=== PATIENT | female | born 1980 | race Caucasian/White ===

== ENCOUNTER 2017-11-16 13:10 | Emergency (ER) | payer OTHER ==
[2017-11-16 13:30] VITALS: BP 157/76; PULSE 128; TEMP 99.2; BMI 23.3
--- NOTE | 2017-11-16 14:09 | PDOC ---
History of Present Illness - General Chief Complaint: Substance Abuse Stated Complaint: Substance Abuse History Source: Patient Exam Limitations: No Limitations - History of Present Illness Initial Comments: 11/16/17 14:05 37 yo F with h/o polysubstance abuse, here acutely after taking cocain, and heroin. was brought by ambulanc after seen walking in and out of a store. pt states she is schduled to go to rehab tomorrow. would like to go home. denies si / hi. states she has a home, lives with someone feels safe at home. denies other ingestions. offered [facility], declines at this time. Past History - Past Medical History Allergies/Adverse Reactions: Allergies Allergy/AdvReac Type Severity Reaction Status Date / Time honey [Honey] Allergy Severe Swelling Verified 11/16/17 13:26 vancomycin HCl Allergy Intermediate Itching Verified 11/16/17 13:26 [From Vancocin] shellfish derived Allergy Difficulty Verified 11/16/17 13:26 Breathing Home Medications: Ambulatory Orders Quetiapine Fumarate [Seroquel] 400 mg PO HS 01/26/16 Methadone HCl 100 mg PO DAILY 02/16/16 Polyethylene Glycol 3350 [Miralax (For Bowel Prep) -] 17 gm PO DAILY #1 bottle 06/15/17 Albuterol Sulfate Inhaler - [Ventolin Hfa Inhaler -] 1 - 2 inh PO QID PRN Anemia: Yes (NO MEDICATIONS, h/o menorrhagia) Asthma: Yes (Pt is on Albuterol IH - ) Cancer: No Cardiac Disorders: No CVA: No COPD: No CHF: No Dementia: No Diabetes: No GI Disorders: No Disorders: No HTN: No Hypercholesterolemia: No Kidney Stones: No Liver Disease: No Psychiatric Problems: Yes (anxiety, drug abuse) Seizures: No Thyroid Disease: No - Surgical History Abdominal Surgery: No Appendectomy: No Cardiac Surgery: No Cholecystectomy: No Lung Surgery: No Neurologic Surgery: No Orthopedic Surgery: No - Family Disease History Family Disease History: Diabetes: Grandparents, Heart Disease: Grandparents - Reproductive History PID: No - Immunization History Immunization Up to Date: (negative ppd; neg hiv 11/2014) - Suicide/Smoking/Psychosocial Hx Smoking Status: Yes Smoking History: Current every day smoker Have you smoked in the past 12 months: Yes Number of Cigarettes Smoked Daily: 20 Information on smoking cessation initiated: No 'Breaking Loose' booklet given: 09/10/17 Hx Alcohol Use: No Drug/Substance Use Hx: Yes Substance Use Type: Cocaine, Heroin, Opiates Hx Substance Use Treatment: Yes (Detox, MMTP) Review of Systems - Review of Systems Constitutional: No: Chills, Diaphoresis, Weight Stable HEENTM: No: Blurred Vision Respiratory: No: Orthopnea, Shortness of Breath Cardiac (ROS): No: Edema Musculoskeletal: No: See HPI, Back Pain Integumentary: No: See HPI, Bruising All Other Systems: Reviewed and Negative *Physical Exam - Vital Signs Last Vital Signs Temp Pulse Resp BP Pulse Ox 99.2 F 128 H 18 157/76 96 11/16/17 13:26 11/16/17 13:26 11/16/17 13:26 11/16/17 13:26 11/16/17 13:26 - Physical Exam General Appearance: Yes: Nourished HEENT: positive: Normal ENT Inspection, Other (conj injection) Neck: positive: Trachea midline Respiratory/Chest: positive: Lungs Clear, Normal Breath Sounds Cardiovascular: positive: Regular Rhythm, S1, S2, Other (regular tachycardia) Gastrointestinal/Abdominal: positive: Normal Bowel Sounds, Flat, Soft. negative : Tender Musculoskeletal: positive: Normal Inspection Extremity: positive: Normal Capillary Refill, Normal Inspection Integumentary: positive: Normal Color, Dry, Warm Neurologic: positive: Fully Oriented, Alert, Normal Mood/Affect, Motor Strength 5/5 Medical Decision Making - Medical Decision Making 11/16/17 14:0 37 yo F with h/o poly substance abuse s/p heroin and cocain, denies si or hi. would like to go home. is alert oriented x 3. ambulating with out difficulty. dc home. *DC/Admit/Observation/Transfer Diagnosis at time of Disposition: Cocaine abuse, Heroin abuse - Discharge Dispostion Disposition: HOME Condition at time of disposition: Good - Referrals - Patient Instructions Printed Discharge Instructions: Cocaine Use Disorder Additional Instructions: you should abstain from drug use. you can follow up with park care, go to [facility] for intake if you wish. return for any problems or concerns. - Post Discharge Activity
--- NOTE | 2017-11-18 22:01 | EKG ---
Test Reason : Blood Pressure : / mmHG Vent. Rate : 113 BPM Atrial Rate : 113 BPM P-R Int : 130 ms QRS Dur : 088 ms QT Int : 344 ms P-R-T Axes : 071 057 025 degrees QTc Int : 471 ms SINUS TACHYCARDIA POSSIBLE LEFT ATRIAL ENLARGEMENT BORDERLINE ECG WHEN COMPARED WITH ECG OF 10-SEP-2017 19:16, T WAVE AMPLITUDE HAS DECREASED IN ANTERIOR LEADS Confirmed by MARII BUSH MD ([id number]) on 11/18/2017 10:01:19 PM Referred By: Confirmed By:MARII BUSH MD
== END 2017-11-16 14:29 | disposition home or self-care (01) ==
LOC: JER 13:10
DX: F14.10 Cocaine abuse, uncomplicated (principal); F11.10 Opioid abuse, uncomplicated; F17.210 Nicotine dependence, cigarettes, uncomplicated; F41.8 Other specified anxiety disorders
CPT/HCPCS: 93005; 93010; 99281-25

== ENCOUNTER 2017-12-18 13:40 | Inpatient (IN) | payer OTHER ==
[2017-12-18] MEDS ORDERED: ALBUTEROL SO4 2.5/IPRATROPIUM 0.5 INH SOL 3 ML VIAL.NEB. NEB ONE (13:55)
[2017-12-18 13:56] VITALS: BMI 23.3
[2017-12-18] MEDS: ALBUTEROL SO4 2.5/IPRATROPIUM 0.5 INH SOL 3 ML VIAL.NEB. NEB SCH ×4 (14:12→22:13)
--- NOTE | 2017-12-18 14:29 | PDOC ---
Attending Attestation - Resident Resident Name: NenaKarri - ED Attending Attestation I have performed the following: I have examined & evaluated the patient, The case was reviewed & discussed with the resident, I agree w/resident's findings & plan - HPI HPI: 12/18/17 14:16 37y/o F distant h/o asthma (last exacerbation as teenager), heroine use p/w 5 days progressive chest congestion, cough with yellow/green sputum, fever/chills and dyspnea. normally unlimited ET, over last few days feels sob even at rest. admits to heroine use, denies LOC or aspiration. no h/o pneumonia or lung injury from substance abuse. - Physicial Exam PE: 12/18/17 14:17 oral temp 99, O2 sat 93%, improves to 97% on oxygen, tachycardia Alert, pale, tachypneic Heart is regular slight tachycardia, coarse bilateral breath sounds with decreased sounds at the bases, scattered end expiratory wheezing abd soft no edema/calf ttp - Critical Care Time Total Critical Care Time: 75 Critical Care Statement: The care of this patient involved high complexity decision making to prevent further life threatening deterioration of the patient 's condition and/or to evaluate & treat vital organ system(s) failure or risk of failure. - Medical Decision Making 12/18/17 14:29 37-year-old female with history of heroin abuse, distant asthma, p/w progressive dyspnea and repiratory distress over past 5 days. Presents with acute hypoxic respiratory distress and likely sepsis. ? acute lung injury from IV opiates, r/o cardiac etiology. sepsis protocol initiated nebs, supplemental O2. given steroids by EMS ekg, cxr required u/s guided IV for access abx per findings will need admission, monitor closely ? bipap 12/18/17 16:02 leukocytosis and elevated lactate suggestive of severe sepsis, trop negative. breathing much improved, less labored after nebs. o2 95% on 2L in chronic smoker. cxr delayed 2/2 status, will will perform given risk/benefit. proceed with admission. Heart Score/ECG Review #1 ECG reviewed & interpreted by me at: 15:16 General ECG Interpretation: Sinus Rhythm (tachy at 109), Normal Intervals (qtc 455), No acute ischemic changes (subtle ST depression/strain inferior and lateral leads) Compared to previous ECG there are: Changes noted (11/16/17)
[2017-12-18 15:22] LABS: VENOUS PC02 36.2 mmHg (38-52); VENOUS PH 7.45 (7.32-7.42); VENOUS PO2 53.9 mmHg (28-48)
[2017-12-18 15:27] LABS: BASO % 0.1 % (0-2.0); EOS % 0.7 % (0-4.5); HEMATOCRIT 41.1 % (32.4-45.2); HEMOGLOBIN 13.5 GM/dL (10.7-15.3); LYMPH % 7.2 % (8-40); MCH 31.2 pg (25.7-33.7); MCHC 32.9 g/dl (32.0-36.0); MEAN CELL VOLUME 94.6 fl (80-96); MEAN PLT VOLUME 8.8 fl (7.5-11.1); MONO % 3.9 % (3.8-10.2); NEUT % 88.1 % (42.8-82.8); PLATELET COUNT 322 K/MM3 (134-434); RBC 4.35 M/mm3 (3.60-5.2); RDW 14.5 % (11.6-15.6); WHITE BLOOD COUNT 19.8 K/mm3 (4.0-10.0)
[2017-12-18 15:43] LABS: INR 1.18 (0.83-1.09)
[2017-12-18 15:45] LABS: ALBUMIN 3.4 g/dl (3.4-5.0); ALK PHOS 82 U/L (45-117); ANION GAP 6 MMOL/L (8-16); BILIRUBIN,TOTAL 0.5 mg/dL (0.2-1); BLOOD UREA NITROGEN 8 mg/dL (7-18); CALCIUM 8.8 mg/dL (8.5-10.1); CHLORIDE 107 mmol/L (98-107); CO2 28 mmol/L (21-32); CREATININE 0.9 mg/dL (0.55-1.3); GLUCOSE,RANDOM 240 mg/dL (74-106); POTASSIUM 3.8 mmol/L (3.5-5.1); SGOT/AST 49 U/L (15-37); SGPT/ALT 57 U/L (13-61); SODIUM 140 mmol/L (136-145); TOT PROT 7.3 g/dl (6.4-8.2)
[2017-12-18] MEDS ORDERED: CLINDAMYCIN 900 MG PREMIX IVPB 900 MG/50 ML BAG IVPB ONE ×3 (15:45→16:45)
--- NOTE | 2017-12-18 15:45 | PDOC ---
History of Present Illness - General Chief Complaint: Asthma Stated Complaint: SHORTNESS OF BREATH Time Seen by Provider: 12/18/17 13:48 - History of Present Illness Initial Comments: 37 year old female with PMH of remote asthma, previously medicated BPD, 20 pack year smoking history, and IV heroin use presenting with shortness of breath, cough, and chest tightness starting today. Patient states that she has been dealing with a cough for the past few days and has been feeling warmth. Describes the cough as productive of green sputum. She attempted to use her albuterol inhaler at home but without much relief. Denies any hemoptysis, nausea , vomiting, diarrhea, or other symptoms. She last used IV heroin 2 days prior, denies extreme somnolence or passing out when using drugs. 12/18/17 15:53 Past History - Past Medical History Allergies/Adverse Reactions: Allergies Allergy/AdvReac Type Severity Reaction Status Date / Time honey [Honey] Allergy Severe Swelling Verified 12/18/17 13:50 vancomycin HCl Allergy Intermediate Itching Verified 12/18/17 13:50 [From Vancocin] shellfish derived Allergy Difficulty Verified 12/18/17 13:50 Breathing Home Medications: Ambulatory Orders Quetiapine Fumarate [Seroquel] 400 mg PO HS 01/26/16 Methadone HCl 100 mg PO DAILY 02/16/16 Albuterol Sulfate Inhaler - [Ventolin Hfa Inhaler -] 1 - 2 inh PO QID PRN Anemia: Yes (NO MEDICATIONS, h/o menorrhagia) Asthma: Yes (Pt is on Albuterol IH - ) Cancer: No Cardiac Disorders: No CVA: No COPD: No CHF: No Dementia: No Diabetes: No GI Disorders: No Disorders: No HTN: No Hypercholesterolemia: No Kidney Stones: No Liver Disease: No Psychiatric Problems: Yes (anxiety, drug abuse) Seizures: No Thyroid Disease: No - Surgical History Abdominal Surgery: No Appendectomy: No Cardiac Surgery: No Cholecystectomy: No Lung Surgery: No Neurologic Surgery: No Orthopedic Surgery: No - Family Disease History Family Disease History: Diabetes: Grandparents, Heart Disease: Grandparents - Reproductive History PID: No - Immunization History Immunization Up to Date: (negative ppd; neg hiv 11/2014) - Suicide/Smoking/Psychosocial Hx Smoking Status: Yes Smoking History: Current every day smoker Have you smoked in the past 12 months: Yes Number of Cigarettes Smoked Daily: 10 Information on smoking cessation initiated: No 'Breaking Loose' booklet given: 09/10/17 Hx Alcohol Use: No Drug/Substance Use Hx: Yes (heroin) Substance Use Type: Cocaine, Heroin, Opiates Hx Substance Use Treatment: Yes (Detox, MMTP) Review of Systems - Review of Systems Constitutional: Yes: Chills, Fever. No: Diaphoresis HEENTM: No: Blurred Vision, Tearing Respiratory: Yes: See HPI, Cough, Shortness of Breath, SOB with Exertion Cardiac (ROS): No: Chest Pain, Edema, Irregular Heart Rate ABD/GI: No: Diarrhea, Nausea, Vomiting : No: Burning, Dysuria, Discharge Musculoskeletal: No: Back Pain, Gout, Joint Pain Integumentary: Yes: Bruising, Lesions (track lafleur in ACs bilaterally). No: Erythema, Flushing Neurological: No: Headache, Numbness, Paresthesia Psychiatric: Yes: Anxiety *Physical Exam - Vital Signs Last Vital Signs Temp Pulse Resp BP Pulse Ox 99 F 111 H 28 H 127/67 95 12/18/17 13:51 12/18/17 15:20 12/18/17 15:20 12/18/17 13:51 12/18/17 15:20 - Physical Exam General Appearance: Yes: Nourished, Appropriately Dressed, Apparent Distress, Moderate Distress HEENT: positive: EOMI, ROMEO, Normal ENT Inspection, Normal Voice Neck: positive: Trachea midline, Normal Thyroid, Supple. negative: Tender, Rigid Respiratory/Chest: positive: Respiratory Distress, Accessory Muscle Use. negative: Chest Tender, Lungs Clear, Normal Breath Sounds (bilateral rhonchi and wheezes) Cardiovascular: positive: Regular Rhythm, Tachycardia. negative: Regular Rate Gastrointestinal/Abdominal: positive: Normal Bowel Sounds, Flat, Soft. negative : Tender Lymphatic: negative: Adenopathy, Tenderness Musculoskeletal: positive: Normal Inspection. negative: Decreased Range of Motion Extremity: positive: Normal Capillary Refill, Normal Inspection, Normal Range of Motion. negative: Tender Integumentary: positive: Normal Color, Dry, Warm Neurologic: positive: Fully Oriented, Alert, Normal Response, Motor Strength 5/ 5. negative: Normal Mood/Affect (easily excited and agitated) ED Treatment Course - LABORATORY CBC & Chemistry Diagram: 12/18/17 13:50 12/18/17 13:50 - ADDITIONAL ORDERS Additional order review: Laboratory Results 12/18/17 14:53 VBG pH 7.45 H POC VBG pCO2 36.2 L POC VBG pO2 53.9 H Mixed VBG HCO3 24.6 - RADIOLOGY Radiology Studies Ordered: Category Date Time Status CHEST X-RAY PORTABLE* [RAD] Stat Radiology 12/18/17 13:48 Ordered - Medications Given in the ED: ED Medications Discontinued Medications Generic Name Dose Route Start Last Admin Trade Name Freq PRN Reason Stop Dose Admin Albuterol/Ipratropium 1 amp 12/18/17 14:00 12/18/17 15:10 Duoneb - NEB 12/18/17 14:46 1 amp Q15M J LUIS Administration Medical Decision Making - Medical Decision Making 37 year old female with extensive smoking history, asthma, and IV drug abuse presenting with fevers and productive coughs for the past few days. Patient much improved after 3 duonebs, IV NS, and abx. She was given decadron on route by EMS. CXR not showing obvious infiltrate but there could be a retrocardiac lesion. Also of concering possibility is endocardiitis which was conveyed to the medicine team in case other workup remains negative. 12/18/17 16:00 *DC/Admit/Observation/Transfer Diagnosis at time of Disposition: PNA (pneumonia) Qualifiers: Pneumonia type: due to unspecified organism Laterality: unspecified laterality Lung location: unspecified part of lung Qualified Code(s): J18.9 - Pneumonia, unspecified organism Sepsis Qualifiers: Sepsis type: sepsis due to unspecified organism Qualified Code(s): A41.9 - Sepsis, unspecified organism - Discharge Dispostion Decision to Admit order: Yes - Referrals Referrals: Estefany Davis MD [Primary Care Provider] - - Patient Instructions - Post Discharge Activity
[2017-12-18] MEDS ORDERED: ACETAMINOPHEN 1000 MG/100 ML VIAL (NON FORMULARY) IVPB ONE (15:51)
[2017-12-18] MEDS ORDERED: SODIUM CHLORIDE 0.9% 500 ML INFUS.BAG IV ONE (15:54)
[2017-12-18] MEDS ORDERED: ACETAMINOPHEN INJECTION 100 ML IVPB ONE (16:45)
--- NOTE | 2017-12-18 17:01 | EKG ---
Test Reason : Blood Pressure : / mmHG Vent. Rate : 109 BPM Atrial Rate : 109 BPM P-R Int : 124 ms QRS Dur : 082 ms QT Int : 338 ms P-R-T Axes : 078 076 003 degrees QTc Int : 455 ms SINUS TACHYCARDIA POSSIBLE LEFT ATRIAL ENLARGEMENT BORDERLINE ECG WHEN COMPARED WITH ECG OF 16-NOV-2017 13:36, NO SIGNIFICANT CHANGE WAS FOUND Confirmed by MD STAR, SHEILA ([id number]) on 12/18/2017 5:01:19 PM Referred By: Confirmed By:SHEILA GRAVES MD
[2017-12-18] MEDS ORDERED: ALBUTEROL SO4 0.083% IH SOL 2.5 MG/3 ML VIAL.NEB. NEB PRN (17:15)
[2017-12-18] MEDS ORDERED: LACTATED RINGERS SOLUTION 1,000 ML IV SCH (17:15)
[2017-12-18] MEDS ORDERED: ACETAMINOPHEN 325 MG TABLET (FP) PO PRN (17:18)
[2017-12-18] MEDS ORDERED: clonazePAM 0.5 MG TABLET PO PRN (17:20)
--- NOTE | 2017-12-18 17:35 | HP ---
CHIEF COMPLAINT: Shortness of breath, subjective fevers PCP: Dr. Hernández HISTORY OF PRESENT ILLNESS: 37yo F with history of asthma (dx'd as a child) and IVDA who presents today with 5 days of increased sputum production with green sputum (no blood), subjective fevers and chills, and shortness of breath. Pt reports this starting 5 days ago with increased sputum production and slowly developed fevers, chills and shortness of breath. Pt reports having the shortness of breath worsen and called the ambulance who brought her to the ER for further evaluation. Pt reports her last use of IV heroine to be 2 days prior and did not notice any increased pain in her arm or redness. Pt endorses some slight diarrhea however it is intermittent. Pt denies any headaches, n/v, blurry vision, chest pain/ discomfort, palpitations, abdominal pain, back pain, dysuria, polyuria. She denies any sick contacts at this point. She reports not receiving a flu shot this season. ER course was notable for: (1) CXR - no overt infiltrates seen (2) Duoneb x1; decadron via EMS x1 (3) Clindamycin, Levaquin x1 Recent Travel: Denies PAST MEDICAL HISTORY: Asthma; poor follow-up --> no history of outpatient steroids (including ICS) , no history of intubations PAST SURGICAL HISTORY: Social History: Smoking: Current; 10 cigarettes per day Alcohol: Occasional Drugs: IVD - Heroine, doesn't reuse needles, last use 2 days prior Lives sporadically with people; ?homeless Family History: Grandparents --> DM and CAD; otherwise noncontributory Allergies honey [Honey] Allergy (Severe, Verified 12/18/17 13:50) Swelling vancomycin HCl [From Vancocin] Allergy (Intermediate, Verified 12/18/17 13:50) Itching shellfish derived Allergy (Verified 12/18/17 13:50) Difficulty Breathing HOME MEDICATIONS: Home Medications Medication Instructions Recorded Quetiapine Fumarate [Seroquel] 400 mg PO HS 01/26/16 Methadone HCl 100 mg PO DAILY 02/16/16 Albuterol Sulfate Inhaler - 1 - 2 inh PO QID PRN 09/10/17 [Ventolin Hfa Inhaler -] REVIEW OF SYSTEMS CONSTITUTIONAL: Present: Fever, chills, Absent: diaphoresis, generalized weakness, malaise, loss of appetite, weight change HEENT: Absent: rhinorrhea, nasal congestion, throat pain, throat swelling, difficulty swallowing, mouth swelling, ear pain, eye pain, visual changes CARDIOVASCULAR: Absent: chest pain, syncope, palpitations, irregular heart rate, lightheadedness , peripheral edema RESPIRATORY: Present: Cough, shortness of breath Absent: dyspnea with exertion, orthopnea, wheezing, stridor, hemoptysis GASTROINTESTINAL: Absent: abdominal pain, abdominal distension, nausea, vomiting, diarrhea, constipation, melena, hematochezia GENITOURINARY: Absent: dysuria, frequency, urgency, hesitancy, hematuria, flank pain MUSCULOSKELETAL: Absent: myalgia, arthralgia, joint swelling, back pain, neck pain SKIN: Absent: rash, itching, pallor PHYSICAL EXAMINATION Vital Signs - 24 hr 12/18/17 12/18/17 13:51 15:20 Temperature 99 F Pulse Rate 105 H Pulse Rate [ 111 H Apical] Respiratory 28 H 28 H Rate Blood Pressure 127/67 O2 Sat by Pulse 93 L 95 Oximetry (%) GENERAL: Awake, alert, and fully oriented, in no acute distress. HEENT: NC/AT, EOMI, BONNIE, sclera anicteric, MMM, no plaques or exudates in oropharynx NECK: No JVD, no lymphadenopathy LUNGS: Slightly diminished breath sounds bilaterally; otherise CTA (duoneb tx just given). No wheezes, and no crackles. No accessory muscle use. HEART: Tachycardic rate and regular rhythm, normal S1 and S2 without murmur ABDOMEN: Soft, nontender, not distended, normoactive bowel sounds, no guarding MUSCULOSKELETAL: No CVA tenderness. EXTREMITIES: 2+ pulses, warm, well-perfused. No peripheral edema. Puncture lafleur on R AC area, no overlying skin changes or fluctuance underlying it. No tract lafleur on lower extremities. PSYCHIATRIC: Cooperative. SKIN: Warm, dry, Puncture lafleur on R AC area, no overlying skin changes or fluctuance underlying it. No tract lafleur on lower extremities. Laboratory Results - last 24 hr 12/18/17 12/18/17 12/18/17 13:50 13:50 13:50 WBC 19.8 H RBC 4.35 Hgb 13.5 Hct 41.1 MCV 94.6 MCH 31.2 MCHC 32.9 RDW 14.5 Plt Count 322 MPV 8.8 Absolute Neuts (auto) 17.5 H Neutrophils % 88.1 H Lymphocytes % 7.2 L D Monocytes % 3.9 Eosinophils % 0.7 Basophils % 0.1 Nucleated RBC % 0 PT with INR INR PTT (Actin FS) VBG pH POC VBG pCO2 POC VBG pO2 Mixed VBG HCO3 Sodium 140 Potassium 3.8 Chloride 107 Carbon Dioxide 28 Anion Gap 6 L BUN 8 Creatinine 0.9 Creat Clearance w eGFR > 60 Random Glucose 240 H Lactic Acid 2.2 H* Calcium 8.8 Total Bilirubin 0.5 AST 49 H ALT 57 Alkaline Phosphatase 82 Troponin I < 0.02 Total Protein 7.3 Albumin 3.4 Serum , Qual 12/18/17 12/18/17 12/18/17 14:53 14:53 15:27 WBC RBC Hgb Hct MCV MCH MCHC RDW Plt Count MPV Absolute Neuts (auto) Neutrophils % Lymphocytes % Monocytes % Eosinophils % Basophils % Nucleated RBC % PT with INR 14.00 H INR 1.18 H PTT (Actin FS) 29.0 VBG pH 7.45 H POC VBG pCO2 36.2 L POC VBG pO2 53.9 H Mixed VBG HCO3 24.6 Sodium Potassium Chloride Carbon Dioxide Anion Gap BUN Creatinine Creat Clearance w eGFR Random Glucose Lactic Acid Calcium Total Bilirubin AST ALT Alkaline Phosphatase Troponin I Total Protein Albumin Serum , Qual Negative ASSESSMENT/PLAN: 1) Asthma exacerbation 2/2 to likely viral syndrome --Flu swab ordered --Sputum culture --BCx pending --No new murmurs or skin abscesses seen --LR@100cc/hr --Zithromax 500mg qDaily; can d/c if workup unrevealing at later point --If pt becomes febrile and worsening sepsis picture can cover alongside with rocephin 2gm --Duoneb QID scheduled with PRN albuterol inbetween for SOB or wheezing --Prednisone 60mg qdaily --Will need PFT's outpatient as f/u after hospitalization and would likely need ICS on an outpatient basis --Tylenol PRN for fevers --Maintain SpO2 >90%; continue NC and titrate as needed 2) IVDA --Pt's last use 2days prior --No new murmurs heard on exam --BCx pending --Klonopin 0.25mg q8h PRN for any withdrawal symptoms or increased anxiety --HIV 4th gen ordered --Hep C ordered FEN: Fluids: LR @100cc/hr Electrolyte abnormalities: None currently Nutrition: Regular diet PPX: DVT - Lovenox 40 qDaily GI - Zantac while on steroids Dispo: Admit to M/S Case discussed with Dr. Matthias Zuleta, DO - IM PGY-2 Visit type - Emergency Visit Emergency Visit: Yes ED Registration Date: 12/18/17 Care time: The patient presented to the Emergency Department on the above date and was hospitalized for further evaluation of their emergent condition. - New Patient This patient is new to me today: Yes Date on this admission: 12/18/17 - Critical Care Critical Care patient: No
[2017-12-18] MEDS ORDERED: ALBUTEROL SO4 0.083% IH SOL 2.5 MG/3 ML VIAL.NEB. NEB ONE ×2 (18:15→18:16)
[2017-12-18] MEDS: ALBUTEROL SO4 0.083% IH SOL 2.5 MG/3 ML VIAL.NEB. NEB SCH ×2 (18:19→20:00)
[2017-12-18] MEDS ORDERED: MAGNESIUM SULF 50% (8.12 MEQ/2 ML-1 GM VIAL) IVPB ONE (19:15)
--- NOTE | 2017-12-18 19:22 | PN ---
Teaching Attending Note Name of Resident: Ruslan Zuleta ATTENDING PHYSICIAN STATEMENT I saw and evaluated the patient. I reviewed the resident's note and discussed the case with the resident. I agree with the resident's findings and plan as documented. SUBJECTIVE: Seen and examined. She is a 37 y/o CF with a PMH significant for current drug abuse (relapsing and remitting opiate, has been + for cocaine in the past), asthma, psych DO, presents with 5 days SOB. She states she hasn't had any sick contacts, no recent exposures, nothing makes her sx better or worse. She has had URIs in the past but not as severe. She was saturating 90% on RA and was given IV steroids and abx and placed on NC in ER. She is now on the floor saturating well on RA. Symptomatically improved. States she has been using an inhaler for the past week but it hasn't helped manage her sx. She hasn't seen a movie writer and has no PFTs. Is a current smoker. No asthma attacks in ' years' and no recent steroid use. Temp <100, HR improved, miltly elevated lactate 2.2, no significant anemia, negative CXR. FH: Asked and noncontributory Social: Current IVDU, doesn't reuse needles, last noted use 2 days ago. Contemplative. PSH: No prior cardiopulmonary procedures PMH: Per EMR; drug abuse, psychiatric issues, asthma (no PFTs available, no baseline peak flow) OBJECTIVE: VSS, all labs reviewed NAD, resting in bed on NC RRR, S1/2 no mgr Lungs with mild wheezes scattered b/l but mostly clear, sym expansion NT ND +BS Normal mood, appropriate behavior Trachea midline, no JVD ASSESSMENT AND PLAN: 1) Acute hypoxic respiratory failure -Resolved with O2 via NC (now on RA), nebs. -Treat for an acute asthma exacerbation with URI likely being inciting factor. No evidence to suggest cardiac involvement or endocarditis. -Low Wells Score for PE 2) Asthma Exacerbation -Old history of asthma; no attacks for years. No peak flows from baseline. States she hasn't been treated for this for some time. As she is a current smoker and approaching 40 with an unclear # of pack years she may have an element of obstruction building up, as well. -Prednisone burst for 5 days, nebs ATC then PRN. Giving a Mg infusion -Obtain OP PFTs, establish baseline peak flow as OP. -Incentive spirometry when awake 3) Likely URI -Flu pending; no infiltrates. High WBC but taken >1 hr (best I can tell) from when EMS gave steroids. -Monitor for fevers, monitor WBC. Broaden treatment and repeat imaging as clinically necessary. -Azithromycin 500 QD for 5 day course. As said, if infiltrate develops or she becomes febrile/clinically worsens then we will go and broaden. 4) Substance abuse -Wants to re-enter methadone tx on DC 5) Documented psychiatric h/o schizophrenia, PTSD -No acute issues; encourage OP followup. Full Code 45 minutes total were taken for this admission
[2017-12-18] MEDS ORDERED: LACTATED RINGERS SOLUTION 1,000 ML/1,000 ML INFUS.BAG IV SCH (20:00)
[2017-12-18] MEDS ORDERED: MAGNESIUM SULF 50% (8.12 MEQ/2 ML-1 GM VIAL) ONE (22:12)
[2017-12-19] MEDS ORDERED: LACTATED RINGERS SOLUTION 1,000 ML/1,000 ML INFUS.BAG IV SCH (00:30)
--- NOTE | 2017-12-19 00:31 | HOSP ---
Subjective - Review of Symptoms Events since last encounter: Blood draw attempted, but unsuccessful. Pt now refusing blood draw at this time. As a result, unable to obtain repeat lactate. Pt currently afebrile at 98.3. Will sign out to day team. Physical Examination Vital Signs: Vital Signs Temperature 98.3 F 12/18/17 20:30 Pulse Rate 65 12/18/17 20:30 Respiratory Rate 16 12/18/17 20:30 Blood Pressure 109/50 L 12/18/17 20:30 O2 Sat by Pulse Oximetry (%) 92 L 12/18/17 21:00 Labs: CBC, BMP 12/18/17 13:50 12/18/17 13:50 Visit type - Emergency Visit Emergency Visit: Yes ED Registration Date: 12/18/17 Care time: The patient presented to the Emergency Department on the above date and was hospitalized for further evaluation of their emergent condition. - New Patient This patient is new to me today: Yes Date on this admission: 12/19/17 - Critical Care Critical Care patient: No
[2017-12-19 05:03] LABS: URINE APPEARANCE CLOUDY; URINE BILIRUBIN NEGATIVE (<2.0 mg/dL); URINE COLOR YELLOW; URINE GLUCOSE (UA) 3+ (NEGATIVE); URINE KETONE NEGATIVE (NEGATIVE); URINE LEUK ESTERASE NEGATIVE (NEGATIVE); URINE NITRITE NEGATIVE (NEGATIVE); URINE PROTEIN NEGATIVE (NEGATIVE); URINE UROBILINOGEN NEGATIVE mg/dL (0.2-1.0)
[2017-12-19 07:15] VITALS: BP 134/70; PULSE 65; TEMP 98.1
[2017-12-19 08:00] LABS: BASO % 0.4 % (0-2.0); EOS % 0.2 % (0-4.5); HEMATOCRIT 35.9 % (32.4-45.2); HEMOGLOBIN 11.6 GM/dL (10.7-15.3); LYMPH % 12.9 % (8-40); MCH 30.6 pg (25.7-33.7); MCHC 32.4 g/dl (32.0-36.0); MEAN CELL VOLUME 94.4 fl (80-96); MEAN PLT VOLUME 8.8 fl (7.5-11.1); MONO % 6.1 % (3.8-10.2); NEUT % 80.4 % (42.8-82.8); PLATELET COUNT 251 K/MM3 (134-434); RBC 3.81 M/mm3 (3.60-5.2); RDW 14.2 % (11.6-15.6); WHITE BLOOD COUNT 15.6 K/mm3 (4.0-10.0)
[2017-12-19 08:29] LABS: ANION GAP 6 MMOL/L (8-16); BLOOD UREA NITROGEN 10 mg/dL (7-18); CALCIUM 8.5 mg/dL (8.5-10.1); CHLORIDE 110 mmol/L (98-107); CO2 24 mmol/L (21-32); CREATININE 0.6 mg/dL (0.55-1.3); GLUCOSE,RANDOM 162 mg/dL (74-106); POTASSIUM 4.4 mmol/L (3.5-5.1); SODIUM 140 mmol/L (136-145)
[2017-12-19] MEDS ORDERED: AZITHROMYCIN 250 MG TABLET PO SCH (10:00)
[2017-12-19] MEDS ORDERED: predniSONE 20 MG TABLET (UD) PO SCH (10:00)
[2017-12-19] MEDS ORDERED: RANITIDINE HCL 150 MG TABLET (FP) PO SCH (10:00)
[2017-12-19] MEDS ORDERED: ENOXAPARIN NA (PORCINE) 40 MG/0.4 ML DISP.SYRIN SQ SCH (10:00)
[2017-12-19] MEDS ORDERED: methylPREDNISolone NA SUCC 40 MG/1 ML VIAL IVPUSH SCH (10:00)
--- NOTE | 2017-12-19 10:55 | CONSULT ---
"Consult Detox [facility] Reason for Current Admission/Consult: IV heroin use - History History of Present Illness: Pt was admitted for shortness of breath. Pt stated at admission that she used IV heroin on the day of admission. Pt was admitted to [facility] in 2017. In the past had been on methadone treatment. Pt states that she is in withdrawal now after having no opioids for the past day. Urine tox screens available. States that she is using several bags of heroin a day. Last use was on 12/18. d/w pt option of methadone or suboxone for treatment of withdrawal. Urine tox ordered STAT just now. Pt had refused to do lab work- no urine collected Search Terms: lopez rush, 1980 Search Date: 12/19/2017 10:55:17 AM The Drug Utilization Report below displays all of the controlled substance prescriptions, if any, that your patient has filled in the last twelve months. The information displayed on this report is compiled from pharmacy submissions to the Department, and accurately reflects the information as submitted by the pharmacies. This report was requested by: Ale Russell | Reference #: [id number] Others' Prescriptions Patient Name: Lopez Rush Date: 1980 Address: [address] [place] [address] Sex: Female Rx Written Rx Dispensed Drug Quantity Days Supply Prescriber Name 06/25/2017 06/25/2017 acetaminophen-cod #3 tablet 20 5 David Andrade () * - Drugs marked with an asterisk are compound drugs. If the compound drug is made up of more than one controlled substance, then each controlled substance will be a separate row in the table. - Alcohol/Substance Use Hx Alcohol Use: No - Past Medical History ...LMP: 03/05/17 ...LMP Comment: period unknown ...: No COWS - Scale Resting Pulse: 1= [place] 81-100 Sweatin= Chills/Flushing Restless Observation: 3= Extraneous Movement Pupil Size: 1= Pupils >than Normal Bone or Joint Aches: 1= Mild Discomfort Runny Nose/ Eye Tearin= Nasal Congestion GI Upset > 30mins: 5=Frequent Vomit/Diarrhea Tremor Observation: 1= Tremor [place], Not Seen Yawning Observation: 0= None Anxiety or Irritability: 2=Irritable/Anxious Goose Flesh Skin: 0=Smooth Skin COWS Score: 16 Assessment Plan - Diagnosis (1) Heroin abuse Status: Acute (2) Opioid use disorder Status: Acute - Plan Plan: Pt agrees to Suboxone treatment of her withdrawal Sx. d/w pt the option of methadone- but pt states that she would prefer Suboxone- has had this in the past. She will f/u at [facility] [place] for treatment with Suboxone. - Medication Detox Regimen/Protocol: Suboxone"
[2017-12-19] MEDS ORDERED: BUPRENORPHINE/NALOXONE 8 MG/2 MG FILM PACKET SL STA (11:51)
[2017-12-19] MEDS ORDERED: BUPRENORPHINE/NALOXONE 8 MG/2 MG FILM PACKET SL SCH (12:15)
[2017-12-19] MEDS: ALBUTEROL SO4 2.5/IPRATROPIUM 0.5 INH SOL 3 ML VIAL.NEB. NEB SCH ×2 (12:55→16:08)
[2017-12-19] MEDS: ALBUTEROL SO4 0.083% IH SOL 2.5 MG/3 ML VIAL.NEB. NEB SCH (16:08)
--- NOTE | 2017-12-19 17:55 | PN ---
Teaching Attending Note Name of Resident: Constance Menard ATTENDING PHYSICIAN STATEMENT I saw and evaluated the patient. I reviewed the resident's note and discussed the case with the resident. I agree with the resident's findings and plan as documented with exceptions below. SUBJECTIVE: Patient seen and examined. still with cough. Feels anxious. OBJECTIVE: Vital Signs Period Temp Pulse Resp BP Sys/Taylor Pulse Ox Last 24 Hr 97.7 F-98.3 F 65-97 16-24 105-134/50-70 92-94 Intake & Output 12/16/17 12/17/17 12/18/17 12/19/17 23:59 23:59 23:59 23:59 Intake Total 1100 1400 Balance 1100 1400 Weight 140 lb 8 oz General: sitting in bed, coughing but no acute distress Chest: no rales or wheezing, good air entry bilaterally Abdomen:Soft, obese, NT Extremities: no edema or erythema Laboratory Results - last 24 hr 12/18/17 12/19/17 12/19/17 18:42 00:00 06:30 WBC 15.6 H RBC 3.81 Hgb 11.6 Hct 35.9 MCV 94.4 MCH 30.6 MCHC 32.4 RDW 14.2 Plt Count 251 D MPV 8.8 Absolute Neuts (auto) 12.5 H Neutrophils % 80.4 Lymphocytes % 12.9 D Monocytes % 6.1 Eosinophils % 0.2 Basophils % 0.4 D Nucleated RBC % 0 Sodium Potassium Chloride Carbon Dioxide Anion Gap BUN Creatinine Creat Clearance w eGFR Random Glucose Lactic Acid 3.9 H* Calcium Urine Color Yellow Urine Appearance Cloudy Urine pH 7.0 Ur Specific [place] 1.026 Urine Protein Negative Urine Glucose (UA) 3+ H Urine Ketones Negative Urine Blood Negative Urine Nitrite Negative Urine Bilirubin Negative Urine Urobilinogen Negative Ur Leukocyte Esterase Negative 12/19/17 06:30 WBC RBC Hgb Hct MCV MCH MCHC RDW Plt Count MPV Absolute Neuts (auto) Neutrophils % Lymphocytes % Monocytes % Eosinophils % Basophils % Nucleated RBC % Sodium 140 Potassium 4.4 Chloride 110 H Carbon Dioxide 24 Anion Gap 6 L BUN 10 Creatinine 0.6 Creat Clearance w eGFR > 60 Random Glucose 162 H Lactic Acid Calcium 8.5 Urine Color Urine Appearance Urine pH Ur Specific [place] Urine Protein Urine Glucose (UA) Urine Ketones Urine Blood Urine Nitrite Urine Bilirubin Urine Urobilinogen Ur Leukocyte Esterase CXr - no acute process ASSESSMENT AND PLAN: 37 yof with PMhx of Asthma, IVDU admitted with reported cough, fevers, and shortness of breath -Suspected URI illness with acute bronchitis -Acute asthma exacerbation -IVDU Plan: Clinically improving WBC better, afebrile, CXR with no acute process patient wanting to leave AMA. Explained risks of leaving including ongoing lung infection, pneumonia, sepsis and Patient relays full understanding of the risks. Offered patient azithromycin and prednisone taper, patient agreable. however, discussed that may not be optimal to treat at this point. patient signed out AMA.
--- NOTE | 2017-12-19 21:19 | DS ---
Physical Exam: SUBJECTIVE: Patient seen and examined this morning. Continues to have cough and congestion. Feels very anxious and upset. OBJECTIVE: Vital Signs Period Temp Pulse Resp BP Sys/Taylor Pulse Ox Last 24 Hr 97.7 F-98.1 F 65-86 18-18 131-134/63-70 94 PHYSICAL EXAM GENERAL: A&Ox3, NAD HEAD: NCAT EYES: PERRL, EOMI ENT: Oropharynx clear without exudates, moist mucous membranes. NECK: No JVD LUNGS: Breath sounds equal, clear to auscultation bilaterally, no wheezes HEART: Regular rate and rhythm, S1, S2 without murmur ABDOMEN: Soft, nontender, nondistended, + bowel sounds, no guarding EXTREMITIES: 2+ pulses, no edema. NEUROLOGICAL: Cranial nerves II through XII grossly intact. Normal speech, Able to ambulate to the restroom without difficulty SKIN: Warm, dry, no rashes or lesions noted. LABS Laboratory Results - last 24 hr 12/19/17 12/19/17 12/19/17 00:00 06:30 06:30 WBC 15.6 H RBC 3.81 Hgb 11.6 Hct 35.9 MCV 94.4 MCH 30.6 MCHC 32.4 RDW 14.2 Plt Count 251 D MPV 8.8 Absolute Neuts (auto) 12.5 H Neutrophils % 80.4 Lymphocytes % 12.9 D Monocytes % 6.1 Eosinophils % 0.2 Basophils % 0.4 D Nucleated RBC % 0 Sodium 140 Potassium 4.4 Chloride 110 H Carbon Dioxide 24 Anion Gap 6 L BUN 10 Creatinine 0.6 Creat Clearance w eGFR > 60 Random Glucose 162 H Calcium 8.5 Urine Color Yellow Urine Appearance Cloudy Urine pH 7.0 Ur Specific [place] 1.026 Urine Protein Negative Urine Glucose (UA) 3+ H Urine Ketones Negative Urine Blood Negative Urine Nitrite Negative Urine Bilirubin Negative Urine Urobilinogen Negative Ur Leukocyte Esterase Negative Microbiology 12/18/17 13:50 Blood - Peripheral Venous Blood Culture - Preliminary NO GROWTH OBTAINED AFTER 24 HOURS, INCUBATION TO CONTINUE FOR 4 DAYS. 12/18/17 13:50 Blood - Peripheral Venous Blood Culture - Preliminary NO GROWTH OBTAINED AFTER 24 HOURS, INCUBATION TO CONTINUE FOR 4 DAYS. 12/18/17 16:46 Nasopharyngeal Swab Influenza Types A,B Antigen - Final 12/18/17 16:46 Nasopharyngeal Swab - Final IMAGING: -CXR (12/18): Normal chest. -CXR (12/19): No evidence of active pulmonary disease. HOSPITAL COURSE: Date of Admission:12/18/17 Date of Discharge: 12/19/17 37 y/o F with PMHx of asthma and IVDA presented to [facility] with 5 day hx of cough productive of green sputum and SOB and was admitted for Acute hypoxic respiratory failure. Flu Swab was negative and Blood cx show no growth to date. Imaging did not reveal any acute pathology. Patient was given breathing treatments, PO Prednisone and one dose of Zithromax. Initial labs revealed an elevated WBC count which was improving. Her lactic acid continued to rise, and patient refused blood draws. Patient was started on Klonipin for her anxiety and possibly any withdrawal symptoms. Addiction medicine was consulted and suggested Suboxone tx with follow up at [facility]. Patient remained afebrile and wanted to leave AMA. The risks of leaving including worsening Lung infection , Pneumonia, Sepsis and were all explained. Patient was able to comprehend and relay back the risks of leaving. She was agreeable to a short course of Zithromax and prednisone taper. Patient was made aware that this may not be optimal but insisted on leaving. Patient signed out AMA. Minutes to complete discharge: 40 Discharge Summary Reason For Visit: SEPSIS/PNEUMONIA Condition: Stable - Instructions Referrals: Estefany Davis MD [Primary Care Provider] - Disposition: AGAINST MEDICAL ADVICE - Home Medications Comprehensive Discharge Medication List: Ambulatory Orders Albuterol Sulfate Inhaler - [Ventolin Hfa Inhaler -] 1 - 2 inh PO QID PRN Azithromycin [Zithromax -] 250 mg PO DAILY #4 tablet 12/19/17 Prednisone See Taper PO DAILY #30 tablet 12/19/17 This patient is new to me today: Yes Date on this admission: 12/18/17 Emergency Visit: Yes ED Registration Date: 12/18/17 Care time: The patient presented to the Emergency Department on the above date and was hospitalized for further evaluation of their emergent condition. Critical Care patient: No - Discharge Referral Referred to [facility] No
== END 2017-12-19 16:20 | disposition left against medical advice (07) | DRG 133 ==
LOC: JER 13:40 → JERBED 16:04 → J8W 19:13
PROVIDERS: ADMIT Internal Medicine; ATTEND Hospitalist
PROC: 3E0F7GC Introduction of Other Therapeutic Substance into Respiratory Tract, Via Natural or Artificial Opening (ICD-10-PCS; principal; 2017-12-18)
PROC: HZ2ZZZZ Detoxification Services for Substance Abuse Treatment (ICD-10-PCS; 2017-12-19)
DX: J96.01 Acute respiratory failure with hypoxia (principal); J45.901 Unspecified asthma with (acute) exacerbation; F11.23 Opioid dependence with withdrawal; J45.909 Unspecified asthma, uncomplicated; R00.0 Tachycardia, unspecified; F17.210 Nicotine dependence, cigarettes, uncomplicated; F31.9 Bipolar disorder, unspecified; D64.9 Anemia, unspecified; J20.9 Acute bronchitis, unspecified
CPT/HCPCS: 36415; 71045-TC-FY; 80048; 80053; 81003; 82803; 83605; 84484; 84703; 85025; 85610; 85730; 87040; 87522; 87804; 93005; 93010; 94640; 99285-25; J0131; J7620

== ENCOUNTER 2018-05-25 21:14 | Emergency (ER) | payer OTHER ==
[2018-05-25] MEDS ORDERED: NALOXONE HCL 0.4 MG/ML VIAL ONE ×2 (21:23)
[2018-05-25] MEDS ORDERED: ONDANSETRON 4 MG/2 ML VIAL ONE (21:23)
[2018-05-25 21:26] VITALS: BP 144/90; PULSE 94; BMI 21.6
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
== END 2018-05-25 22:59 | disposition left against medical advice (07) ==
LOC: JER 21:14
DX: F11.10 Opioid abuse, uncomplicated (principal); J45.909 Unspecified asthma, uncomplicated; F20.9 Schizophrenia, unspecified; F41.9 Anxiety disorder, unspecified
CPT/HCPCS: 99282-25

== ENCOUNTER 2018-07-03 09:56 | Inpatient (IN) | payer OTHER ==
[2018-07-03 10:20] VITALS: BMI 21.9
--- NOTE | 2018-07-03 11:56 | HP ---
COWS - Scale Resting Pulse: 0= MI 80 or Below Sweatin= Chills/Flushing Restless Observation: 3= Extraneous Movement Pupil Size: 1= Pupils >than Normal Bone or Joint Aches: 2= Severe Diffuse Aches Runny Nose/ Eye Tearin= Runny Nose/Eyes GI Upset > 30mins: 3= Vomiting/Diarrhea Tremor Observation: 2= Slight Tremor Visible Yawning Observation: 2= >3x During Session Anxiety or Irritability: 2=Irritable/Anxious Goose Flesh Skin: 0=Smooth Skin COWS Score: 18 CIWA Score - Admission Criteria OASAS Guidelines: Admission for Medically Managed Detox: Requires at least one of the followin. CIWA greater than 12 2. Seizures within the past 24 hours 3. Delirium tremens within the past 24 hours 4. Hallucinations within the past 24 hours 5. Acute intervention needed for co occurring medical disorder 6. Acute intervention needed for co occurring psychiatric disorder 7. Severe withdrawal that cannot be handled at a lower level of care (continued vomiting, continued diarrhea, abnormal vital signs) requiring intravenous medication and/or fluids 8. Admission ROS S - HPI Chief Complaint: i need help to stop using heroin and cocaine Allergies/Adverse Reactions: Allergies Allergy/AdvReac Type Severity Reaction Status Date / Time honey [Honey] Allergy Severe Swelling Verified 07/03/18 10:13 vancomycin HCl Allergy Intermediate Itching Verified 07/03/18 10:13 [From Vancocin] shellfish derived Allergy Difficulty Verified 07/03/18 10:13 Breathing History of Present Illness: this38 years old female with heroin and cocaine dependence,seeking detox, withdrawal symptom multiple admissions in detox,last 09/10/17 to 09/12/17 not completed keep relapsing nicotine dependence 1 pack/day,requesting nicotine patch and gum weight loss 30 lbs longest period of sobriety 9 months schizophrenia no med Exam Limitations: No Limitations - Ebola screening Have you traveled outside of the country in the last 21 days: No Have you had contact with anyone from an Ebola affected area: No Do you have a fever: No - Review of Systems Constitutional: Loss of Appetite, Malaise, Night Sweats, Changes in sleep, Weakness, Unintentional Wgt. Loss EENT: reports: Tearing, Nose Congestion Respiratory: reports: No Symptoms reported Cardiac: reports: No Symptoms Reported GI: reports: Diarrhea, Nausea, Vomiting, Abdominal cramping : reports: No Symptoms Reported Musculoskeletal: reports: Back Pain, Joint Pain, Muscle Pain, Joint Stiffness Integumentary: reports: Dryness Neuro: reports: Headache, Tremors Endocrine: reports: No Symptoms Reported Hematology: reports: No Symptoms Reported Psychiatric: reports: No Sypmtoms Reported, Judgement Intact, Mood/Affect Appropiate, Orientated x3, other (schizophrenia no med) Other Systems: Reviewed and Negative Patient History - Patient Medical History Hx Anemia: Yes (NO MEDICATIONS, h/o menorrhagia) Hx Asthma: Yes (Pt is on Albuterol IH - ) Hx Chronic Obstructive Pulmonary Disease (COPD): No Hx Cancer: No Hx Cardiac Disorders: No Hx Congestive Heart Failure: No Hx Hypertension: No Hx Hypercholesterolemia: No Hx Pacemaker: No HX Cerebrovascular Accident: No Hx Seizures: No Hx Dementia: No Hx Diabetes: No Hx Gastrointestinal Disorders: No Hx Liver Disease: No Hx Genitourinary Disorders: No Hx Sexually Transmitted Disorders: No Hx Renal Disease (ESRD): No Hx Thyroid Disease: No Hx Human Immunodeficiency Virus (HIV): No (last 2018 negative) Hx Hepatitis C: No Hx Depression: No Hx Suicide Attempt: No Hx Bipolar Disorder: No Hx Schizophrenia: Yes (Denies suicide or violent ideation) Other Medical History: no suicidal,no homicidal - Patient Surgical History Past Surgical History: Yes Hx Neurologic Surgery: No Hx Cataract Extraction: No Hx Cardiac Surgery: No Hx Lung Surgery: No Hx Breast Surgery: No Hx Breast Biopsy: No Hx Abdominal Surgery: No Hx Appendectomy: No Hx Cholecystectomy: No Hx Genitourinary Surgery: No Hx Section: Yes (x 19 years ago) Hx Orthopedic Surgery: No Hx Hysterectomy: No Anesthesia Reaction: No - PPD History Previous Implant?: Yes Documented Results: Negative w/o proof Implanted On Prior R Admission?: Yes Date: 06/30/13 PPD to be Administered?: Yes - Reproductive History Patient is a Female of Child Bearing Age (11 -55 yrs old): Yes Last Menstrual Period: 03/05/17 Patient : No - Smoking Cessation Smoking history: Current every day smoker Have you smoked in the past 12 months: Yes Aproximately how many cigarettes per day: 20 Hx Chewing Tobacco Use: No Initiated information on smoking cessation: Yes 'Breaking Loose' booklet given: 07/03/18 - Substance & Tx. History Hx Alcohol Use: Yes Hx Substance Use: Yes Substance Use Type: Cocaine, Heroin Hx Substance Use Treatment: Yes ([facility] 09/10/17 to 09/12/17) - Substances abused Heroin Substance route: Injection Frequency: Daily Amount used: 4 bags Age of first use: 16 Date of last use: 07/03/18 Crack Substance route: Smoking Frequency: 1-2 times per week Amount used: $20 Age of first use: 16 Date of last use: 07/01/18 Family Disease History - Family Disease History Family Disease History: Diabetes: Grandparent (alcohol), Other: Grandparent, Father (crack), Mother (lupus, crack) Admission Physical Exam S - Vital Signs Vital Signs: Vital Signs - 24 hr 07/03/18 10:16 Temperature 97.9 F Pulse Rate 55 L Respiratory 18 Rate Blood Pressure 104/70 - Physical General Appearance: Yes: Moderate Distress, Alcohol on Breath, Tremorous, Irritable, Sweating, Anxious HEENTM: Yes: Normal ENT Inspection, ROMEO, Pharynx Normal Respiratory: Yes: Lungs Clear, Normal Breath Sounds, No Respiratory Distress, Other (asthma) Neck: Yes: Within Normal Limits, Supple, Trachea in good position Breast: Yes: Breast Exam Deferred Cardiology: Yes: Bradycardia Abdominal: Yes: Within Normal Limits, Normal Bowel Sounds, Soft Genitourinary: Yes: Within Normal Limits Back: Yes: Muscle Spasm Musculoskeletal: Yes: full range of Motion, Back pain, Joint Stiffness, Muscle Pain Extremities: Yes: Tremors Neurological: Yes: coating engineer II-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 NML intact, Fully Oriented, Alert, Motor Strength 5/5 Integumentary: Yes: Dry, Track Castano Lymphatic: Yes: Within Normal Limits - Diagnostic (1) Opioid dependence with withdrawal Current Visit: Yes Status: Acute (2) Cocaine dependence Current Visit: Yes Status: Chronic (3) IVDU (intravenous drug user) Current Visit: Yes Status: Acute (4) Weight loss Current Visit: Yes Status: Acute (5) Asthma Current Visit: No Status: Chronic Qualifiers: Asthma severity: mild Asthma persistence: intermittent Asthma complication type: with status asthmaticus Qualified Code(s): J45.22 - Mild intermittent asthma with status asthmaticus (6) Schizophrenia Current Visit: Yes Status: Chronic Qualifiers: Schizophrenia type: paranoid schizophrenia Qualified Code(s): F20.0 - Paranoid schizophrenia Comment: History. Is currently followed by the [place] [facility]. (7) Dehydration Current Visit: Yes Status: Acute (8) History of anemia Current Visit: Yes Status: Acute (9) History of delivery Current Visit: Yes Status: Acute Cleared for Admission S - Detox or Rehab [facility] Level of Care: Medically Managed Detox Regimen/Protocol: Methadone Urine Drug Screen - Test Device Lot number: [id number] - Control Is test valid?: Yes - Results Drug screen NEGATIVE: No Urine drug screen results: REID-Cocaine, FEN-Fentanyl, MOP-Opiates Inpatient Rehab Admission - Rehab Decision to Admit Inpatient rehab admission?: No
[2018-07-03] MEDS ORDERED: cloNIDine HCL 0.1 MG TABLET PO PRN (12:07)
[2018-07-03] MEDS ORDERED: ACETAMINOPHEN 325 MG TABLET (FP) PO PRN ×2 (12:07)
[2018-07-03] MEDS ORDERED: MAGNESIUM HYDROX 2400MG/30ML ORAL SUSPENSION 30 ML CUP PO PRN (12:07)
[2018-07-03] MEDS ORDERED: MAGNESIUM CITRATE 300 ML BOTTLE PO PRN (12:07)
[2018-07-03] MEDS ORDERED: MENTHOL/PHENOL 1 EACH UD MM PRN (12:07)
[2018-07-03] MEDS ORDERED: IBUPROFEN 400 MG TABLET (FP) PO PRN (12:07)
[2018-07-03] MEDS ORDERED: MAG HYDROX/AL HYDROX/SIMETH 30 ML UNIT-DOSE CUP PO PRN (12:07)
[2018-07-03] MEDS ORDERED: hydrOXYzine PAMOATE 25 MG CAPSULE (FP) PO PRN (12:07)
[2018-07-03] MEDS ORDERED: BISMUTH SUBSALICYLATE 262 MG/15 ML BTL PO PRN (12:07)
[2018-07-03] MEDS ORDERED: METHOCARBAMOL 500 MG TABLET PO PRN (12:07)
[2018-07-03] MEDS ORDERED: MELATONIN 5 MG TABLETS PO PRN (12:07)
[2018-07-03] MEDS ORDERED: METHADONE HCL 10 MG TABLET (FOR DETOX USE ONLY) PO ONE ×2 (12:45→23:00)
[2018-07-03] MEDS: diazePAM 5 MG TABLET PO PRN ×2 (13:10→22:17)
[2018-07-03 14:22] LABS: HEMATOCRIT 44.2 % (32.4-45.2); HEMOGLOBIN 14.8 GM/dL (10.7-15.3); MCH 31.7 pg (25.7-33.7); MCHC 33.6 g/dl (32.0-36.0); MEAN CELL VOLUME 94.5 fl (80-96); MEAN PLT VOLUME 8.3 fl (7.5-11.1); PLATELET COUNT 265 K/MM3 (134-434); RBC 4.68 M/mm3 (3.60-5.2); WHITE BLOOD COUNT 7.8 K/mm3 (4.0-10.0)
[2018-07-03 14:31] LABS: EPI CELLS >36 /HPF (0-5/HPF); PH,URINE 6.5 (5.0-8.0); URINE APPEARANCE TURBID; URINE BACTERIA >9000 /hpf (NEGATIVE); URINE BILIRUBIN NEGATIVE (NEGATIVE); URINE CASTS 22 /lpf (0-8); URINE COLOR YELLOW; URINE GLUCOSE (UA) 3+ (NEGATIVE); URINE KETONE NEGATIVE (NEGATIVE); URINE LEUK ESTERASE NEGATIVE (NEGATIVE); URINE NITRITE POSITIVE (NEGATIVE); URINE PROTEIN NEGATIVE (NEGATIVE); URINE RBC 3 /hpf (0-4); URINE UROBILINOGEN 0.2 mg/dL (0.2-1.0)
[2018-07-03 14:31] LABS: ALBUMIN 3.4 g/dl (3.4-5.0); ALK PHOS 94 U/L (45-117); ANION GAP 6 MMOL/L (8-16); BILIRUBIN,TOTAL 0.3 mg/dL (0.2-1); BLOOD UREA NITROGEN 9 mg/dL (7-18); CALCIUM 8.9 mg/dL (8.5-10.1); CHLORIDE 107 mmol/L (98-107); CO2 26 mmol/L (21-32); CREATININE 0.8 mg/dL (0.55-1.3); GLUCOSE,RANDOM 148 mg/dL (74-106); POTASSIUM 4.6 mmol/L (3.5-5.1); SGOT/AST 20 U/L (15-37); SGPT/ALT 26 U/L (13-61); SODIUM 138 mmol/L (136-145); TOT PROT 7.5 g/dl (6.4-8.2)
[2018-07-03 14:47] LABS: URINE WBC 15 /hpf (0-5)
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
[2018-07-03] MEDS: THIAMINE HCL 100 MG TABLET (FP) PO SCH (22:15)
[2018-07-04] MEDS ORDERED: METHADONE HCL 10 MG TABLET (FOR DETOX USE ONLY) PO ONE (10:00)
[2018-07-04] MEDS: NICOTINE 21 MG/24 HOURS TOPICAL PATCH TD SCH (10:19)
[2018-07-04] MEDS: PRENATAL VITAMINS W/ FOLIC ACID TABLET (FP) PO SCH (10:20)
--- NOTE | 2018-07-04 11:14 | PN ---
[facility] COWS - Scale Resting Pulse: 1= ME 81-100 Sweatin= Chills/Flushing Restless Observation: 1= Difficult to Sit Still Pupil Size: 1= Pupils >than Normal Bone or Joint Aches: 1= Mild Discomfort Runny Nose/ Eye Tearin= Nasal Congestion GI Upset > 30mins: 1= Stomach Cramp Tremor Observation of Outstretched Hands: 1= Tremor [place], Not Seen Yawning Observation: 1= 1-2x During Session Anxiety or Irritability: 2=Irritable/Anxious Goose Flesh Skin: 3=Piloerection COWS Score: 14 S Progress Note (SOAP) Subjective: doing ok with methadone detox regimen feeling tired low energy trouble sleep at night Objective: 07/04/18 11:17 Vital Signs Temperature 97.4 F L 07/04/18 09:22 Pulse Rate 83 07/04/18 09:22 Respiratory Rate 18 07/04/18 09:22 Blood Pressure 118/74 07/04/18 09:22 O2 Sat by Pulse Oximetry (%) Laboratory Last Values WBC 7.8 K/mm3 (4.0-10.0) 07/03/18 12:30 RBC 4.68 M/mm3 (3.60-5.2) 07/03/18 12:30 Hgb 14.8 GM/dL (10.7-15.3) 07/03/18 12:30 Hct 44.2 % (32.4-45.2) 07/03/18 12:30 MCV 94.5 fl (80-96) 07/03/18 12:30 MCH 31.7 pg (25.7-33.7) 07/03/18 12:30 MCHC 33.6 g/dl (32.0-36.0) 07/03/18 12:30 RDW 15.0 % (11.6-15.6) 07/03/18 12:30 Plt Count 265 K/MM3 (134-434) 07/03/18 12:30 MPV 8.3 fl (7.5-11.1) 07/03/18 12:30 Sodium 138 mmol/L (136-145) 07/03/18 12:30 Potassium 4.6 mmol/L (3.5-5.1) 07/03/18 12:30 Chloride 107 mmol/L (98-107) 07/03/18 12:30 Carbon Dioxide 26 mmol/L (21-32) 07/03/18 12:30 Anion Gap 6 MMOL/L (8-16) L 07/03/18 12:30 BUN 9 mg/dL (7-18) 07/03/18 12:30 Creatinine 0.8 mg/dL (0.55-1.3) 07/03/18 12:30 Creat Clearance w eGFR 80.27 (>60) 07/03/18 12:30 Random Glucose 148 mg/dL (74-106) H 07/03/18 12:30 Calcium 8.9 mg/dL (8.5-10.1) 07/03/18 12:30 Total Bilirubin 0.3 mg/dL (0.2-1) 07/03/18 12:30 AST 20 U/L (15-37) 07/03/18 12:30 ALT 26 U/L (13-61) 07/03/18 12:30 Alkaline Phosphatase 94 U/L (45-117) 07/03/18 12:30 Total Protein 7.5 g/dl (6.4-8.2) 07/03/18 12:30 Albumin 3.4 g/dl (3.4-5.0) 07/03/18 12:30 Urine Color Yellow 07/03/18 13:10 Urine Appearance Turbid 07/03/18 13:10 Urine pH 6.5 (5.0-8.0) D 07/03/18 13:10 Ur Specific [place] 1.022 (1.010-1.035) 07/03/18 13:10 Urine Protein Negative (NEGATIVE) 07/03/18 13:10 Urine Glucose (UA) 3+ (NEGATIVE) H 07/03/18 13:10 Urine Ketones Negative (NEGATIVE) 07/03/18 13:10 Urine Blood Negative (NEGATIVE) 07/03/18 13:10 Urine Nitrite Positive (NEGATIVE) H 07/03/18 13:10 Urine Bilirubin Negative (NEGATIVE) 07/03/18 13:10 Urine Urobilinogen 0.2 mg/dL (0.2-1.0) 07/03/18 13:10 Ur Leukocyte Esterase Negative (NEGATIVE) 07/03/18 13:10 Urine WBC (Auto) 15 /hpf (0-5) 07/03/18 13:10 Urine RBC (Auto) 3 /hpf (0-4) 07/03/18 13:10 Urine Casts (Auto) 22 /lpf (0-8) 07/03/18 13:10 U Pathogenic Cast Auto None seen /lpf (NEGATIVE) 07/03/18 13:10 U Epithel Cells (Auto) >36 /HPF (0-5/HPF) 07/03/18 13:10 U Sm Round Cell (Auto) None seen 07/03/18 13:10 Urine Bacteria (Auto) >9000 /hpf (NEGATIVE) 07/03/18 13:10 POC Urine HCG, Qual Negative 07/03/18 10:20 RPR Titer Nonreactive (NONREACTIVE) 07/03/18 12:30 HIV 1&2 Antibody Screen Negative 07/03/18 12:30 HIV P24 Antigen Negative 07/03/18 12:30 lab noted Assessment: 07/04/18 11:17 opiate withdrawal sx Plan: continue detox
[2018-07-04] MEDS: THIAMINE HCL 100 MG TABLET (FP) PO SCH (22:02)
[2018-07-04] MEDS: diazePAM 5 MG TABLET PO PRN (22:02)
[2018-07-04] MEDS: NICOTINE POLACRILEX 2 MG GUM BUC PRN (22:44)
[2018-07-05 09:20] VITALS: BP 119/71; PULSE 72; TEMP 97.4
[2018-07-05] MEDS ORDERED: METHADONE HCL 10 MG TABLET (FOR DETOX USE ONLY) PO ONE (10:00)
[2018-07-05] MEDS: PRENATAL VITAMINS W/ FOLIC ACID TABLET (FP) PO SCH (10:23)
[2018-07-05] MEDS: NICOTINE 21 MG/24 HOURS TOPICAL PATCH TD SCH (10:23)
[2018-07-05] MEDS: NICOTINE POLACRILEX 2 MG GUM BUC PRN (12:19)
--- NOTE | 2018-07-05 14:08 | DS ---
[facility] Detox Discharge Summary Admission Date: 07/03/18 Discharge Date: 07/05/18 - History Present History: Cocaine Dependence, Opioid Dependence Pertinent Past History: Pt left AMA today. was admitted 2 days ago for opioid withdrawal protocol- pt states she wants to leave today. d/w pt the option to return to methadone maintenance for relapse prevention- - Physical Exam Results Vital Signs: Vital Signs Temperature 97.4 F L 07/05/18 09:19 Pulse Rate 72 07/05/18 09:19 Respiratory Rate 18 07/05/18 09:19 Blood Pressure 119/71 07/05/18 09:19 O2 Sat by Pulse Oximetry (%) - Treatment Hospital Course: Detox Protocol Followed - Medication Discharge Medications: Ambulatory Orders NK [No Known Home Medication] 07/03/18 - AMA Did Patient Leave Against Medical Advice: Yes
[2018-07-06] MEDS ORDERED: METHADONE HCL 10 MG TABLET (FOR DETOX USE ONLY) PO ONE (10:00)
[2018-07-06] MEDS ORDERED: METHADONE (DETOX) 10 MG, METHADONE (DETOX) 5 MG PO ONE (10:00)
[2018-07-07] MEDS ORDERED: METHADONE HCL 5 MG TABLET (FOR DETOX USE ONLY) PO ONE (06:00)
[2018-07-07] MEDS ORDERED: METHADONE HCL 10 MG TABLET (FOR DETOX USE ONLY) PO ONE (10:00)
[2018-07-08] MEDS ORDERED: METHADONE HCL 5 MG TABLET (FOR DETOX USE ONLY) PO ONE (06:00)
== END 2018-07-05 01:18 | disposition left against medical advice (07) | DRG 770 ==
LOC: YASAS 09:56 → Y3N 12:30
PROVIDERS: ADMIT Surgery; ATTEND Surgery
PROC: HZ2ZZZZ Detoxification Services for Substance Abuse Treatment (ICD-10-PCS; principal; 2018-07-03)
DX: F11.23 Opioid dependence with withdrawal (principal); F14.20 Cocaine dependence, uncomplicated; F17.210 Nicotine dependence, cigarettes, uncomplicated; F20.0 Paranoid schizophrenia; F19.24 Other psychoactive substance dependence with psychoactive substance-induced mood disorder; D64.9 Anemia, unspecified; E86.0 Dehydration; J45.20 Mild intermittent asthma, uncomplicated; Z68.22 Body mass index [BMI] 22.0-22.9, adult; Z91.013 Allergy to seafood; Z88.8 Allergy status to other drugs, medicaments and biological substances; Z91.19 Patient's noncompliance with other medical treatment and regimen; Z59.0 Homelessness
CPT/HCPCS: 36415; 80053; 81003; 81025; 85027; 86593; 87389

== ENCOUNTER 2018-07-15 12:54 | Inpatient (IN) | payer OTHER | END 2018-07-17 15:22 | disposition left against medical advice (07) | LOC: YASAS 12:54 → Y6N 16:46 ==

== ENCOUNTER 2018-07-26 08:35 | Inpatient (IN) | payer OTHER | END 2018-07-28 17:15 | disposition left against medical advice (07) | LOC: YASAS 08:35 → Y6N 10:43 ==

== ENCOUNTER 2018-08-14 08:14 | Inpatient (IN) | payer OTHER ==
[2018-08-14 09:20] VITALS: BMI 22.9
--- NOTE | 2018-08-14 09:47 | HP ---
COWS - Scale Resting Pulse: 0= DC 80 or Below Sweatin= Chills/Flushing Restless Observation: 1= Difficult to Sit Still Pupil Size: 1= Pupils >than Normal Bone or Joint Aches: 2= Severe Diffuse Aches Runny Nose/ Eye Tearin= Runny Nose/Eyes GI Upset > 30mins: 2= Nausea/Diarrhea Tremor Observation: 2= Slight Tremor Visible Yawning Observation: 1= 1-2x During Session Anxiety or Irritability: 2=Irritable/Anxious Goose Flesh Skin: 0=Smooth Skin COWS Score: 14 CIWA Score - Admission Criteria OASAS Guidelines: Admission for Medically Managed Detox: Requires at least one of the followin. CIWA greater than 12 2. Seizures within the past 24 hours 3. Delirium tremens within the past 24 hours 4. Hallucinations within the past 24 hours 5. Acute intervention needed for co occurring medical disorder 6. Acute intervention needed for co occurring psychiatric disorder 7. Severe withdrawal that cannot be handled at a lower level of care (continued vomiting, continued diarrhea, abnormal vital signs) requiring intravenous medication and/or fluids 8. Admission ROS S - HPI Chief Complaint: i need help to stop using heroin and cocaine Allergies/Adverse Reactions: Allergies Allergy/AdvReac Type Severity Reaction Status Date / Time honey [Honey] Allergy Severe Swelling Verified 08/14/18 09:11 vancomycin HCl Allergy Intermediate Itching Verified 08/14/18 09:11 [From Vancocin] shellfish derived Allergy Difficulty Verified 08/14/18 09:11 Breathing History of Present Illness: this 38 years old female with heroin and cocaine dependence seeking detox, withdrawal symptom, multiple admissions in the past,non compliance last detox [facility] 07/26/18 to 07/28/18 weight loss asthma nicotine 1 pack/day,would like nicotine patch and gum longest sobriety 5 moths may go to rehab after detox Exam Limitations: No Limitations - Ebola screening Have you traveled outside of the country in the last 21 days: No (N) Have you had contact with anyone from an Ebola affected area: No Do you have a fever: No - Review of Systems Constitutional: Chills, Loss of Appetite, Malaise, Night Sweats, Changes in sleep, Weakness, Unintentional Wgt. Loss EENT: reports: Tearing, Nose Congestion Respiratory: reports: No Symptoms reported, Other (athma) Cardiac: reports: No Symptoms Reported GI: reports: Diarrhea, Nausea, Vomiting, Abdominal cramping : reports: No Symptoms Reported Musculoskeletal: reports: Back Pain, Joint Pain, Muscle Pain Integumentary: reports: Dryness Neuro: reports: Headache, Tremors Endocrine: reports: No Symptoms Reported Hematology: reports: No Symptoms Reported Psychiatric: reports: No Sypmtoms Reported, Judgement Intact, Mood/Affect Appropiate, Orientated x3 Other Systems: Reviewed and Negative Patient History - Patient Medical History Hx Anemia: Yes (NO MEDICATIONS, h/o menorrhagia) Hx Asthma: Yes (Pt is on Albuterol IH - ) Hx Chronic Obstructive Pulmonary Disease (COPD): No Hx Cancer: No Hx Cardiac Disorders: No Hx Congestive Heart Failure: No Hx Hypertension: No Hx Hypercholesterolemia: No Hx Pacemaker: No HX Cerebrovascular Accident: No Hx Seizures: No Hx Dementia: No Hx Diabetes: No Hx Gastrointestinal Disorders: No Hx Liver Disease: No Hx Genitourinary Disorders: No Hx Sexually Transmitted Disorders: No Hx Renal Disease (ESRD): No Hx Thyroid Disease: No Hx Human Immunodeficiency Virus (HIV): No (last 2018 negative) Hx Hepatitis C: No Hx Depression: No Hx Suicide Attempt: Yes (overdose at age of 17 years) Hx Bipolar Disorder: No Hx Schizophrenia: Yes (Denies suicide or violent ideation) Other Medical History: no suicidal,no homicidal - Patient Surgical History Past Surgical History: Yes Hx Neurologic Surgery: No Hx Cataract Extraction: No Hx Cardiac Surgery: No Hx Lung Surgery: No Hx Breast Surgery: No Hx Breast Biopsy: No Hx Abdominal Surgery: No Hx Appendectomy: No Hx Cholecystectomy: No Hx Genitourinary Surgery: No Hx Section: Yes (x 19 years ago) Hx Orthopedic Surgery: No Hx Hysterectomy: No Anesthesia Reaction: No - PPD History Previous Implant?: Yes Documented Results: Negative w/proof Implanted On Prior R Admission?: Yes Date: 07/05/18 Results: 1 PPD to be Administered?: No - Reproductive History Patient is a Female of Child Bearing Age (11 -55 yrs old): Yes Last Menstrual Period: 03/05/17 Patient : No - Smoking Cessation Smoking history: Current every day smoker Have you smoked in the past 12 months: Yes Aproximately how many cigarettes per day: 20 Hx Chewing Tobacco Use: No Initiated information on smoking cessation: Yes 'Breaking Loose' booklet given: 08/14/18 - Substance & Tx. History Hx Alcohol Use: No Hx Substance Use: Yes Substance Use Type: Cocaine, Heroin Hx Substance Use Treatment: Yes ([facility] 07/26/18 to 07/18/18) - Substances abused Heroin Substance route: Injection Frequency: Daily Amount used: 15 bags Age of first use: 20 Date of last use: 08/12/18 Crack Substance route: Smoking Frequency: 3-6 times per week Amount used: $40 Age of first use: 16 Date of last use: 08/11/18 Family Disease History - Family Disease History Family Disease History: Diabetes: Grandparent (alcohol), Other: Grandparent, Father (crack), Mother (lupus, crack) Admission Physical Exam S - Vital Signs Vital Signs: Vital Signs - 24 hr 08/14/18 09:08 Temperature 98.3 F Pulse Rate 72 Respiratory 18 Rate Blood Pressure 120/76 - Physical General Appearance: Yes: Moderate Distress, Tremorous, Irritable, Sweating, Anxious HEENTM: Yes: Normal ENT Inspection, ROMEO, Pharynx Normal Respiratory: Yes: Lungs Clear, Normal Breath Sounds, No Respiratory Distress Neck: Yes: Within Normal Limits, Supple, Trachea in good position Breast: Yes: Breast Exam Deferred Abdominal: Yes: Within Normal Limits, Normal Bowel Sounds, Flat, Soft Genitourinary: Yes: Within Normal Limits Back: Yes: Within Normal Limits Musculoskeletal: Yes: Back pain, Muscle Pain Extremities: Yes: Tremors Neurological: Yes: drawer in II-XII NML intact, Fully Oriented, Alert, Motor Strength 5/5 Integumentary: Yes: Dry, Track Castano Lymphatic: Yes: Within Normal Limits - Diagnostic (1) Opioid dependence with withdrawal Current Visit: No Status: Chronic (2) History of anemia Current Visit: No Status: Acute (3) Weight loss Current Visit: No Status: Acute (4) Asthma Current Visit: No Status: Chronic Qualifiers: Asthma severity: mild Asthma persistence: intermittent Asthma complication type: with status asthmaticus Qualified Code(s): J45.22 - Mild intermittent asthma with status asthmaticus (5) IVDU (intravenous drug user) Current Visit: No Status: Chronic (6) Nicotine dependence Current Visit: No Status: Chronic Qualifiers: Nicotine product type: cigarettes (7) Schizophrenia Current Visit: No Status: Chronic Qualifiers: Schizophrenia type: paranoid schizophrenia Qualified Code(s): F20.0 - Paranoid schizophrenia Comment: History. Is currently followed by the [facility]. (8) Dehydration Current Visit: Yes Status: Acute Cleared for Admission S - Detox or Rehab [facility] Level of Care: Medically Managed Detox Regimen/Protocol: Methadone Breathalyzer - Breathalyzer Breathalyzer: 0 Urine Drug Screen - Test Device Lot number: [id number] Expiration date: 04/04/20 - Control Is test valid?: Yes - Results Drug screen NEGATIVE: No Urine drug screen results: REID-Cocaine, FEN-Fentanyl, MOP-Opiates, OXY-Oxycodone Inpatient Rehab Admission - Rehab Decision to Admit Inpatient rehab admission?: No
[2018-08-14] MEDS ORDERED: cloNIDine HCL 0.1 MG TABLET PO PRN (09:53)
[2018-08-14] MEDS ORDERED: MAGNESIUM HYDROX 2400MG/30ML ORAL SUSPENSION 30 ML CUP PO PRN (09:58)
[2018-08-14] MEDS ORDERED: MELATONIN 5 MG TABLETS PO PRN (09:58)
[2018-08-14] MEDS ORDERED: BISMUTH SUBSALICYLATE 524 MG/30 ML UD PO PRN (09:58)
[2018-08-14] MEDS ORDERED: MAG HYDROX/AL HYDROX/SIMETH 30 ML UNIT-DOSE CUP PO PRN (09:58)
[2018-08-14] MEDS ORDERED: IBUPROFEN 400 MG TABLET (FP) PO PRN (09:58)
[2018-08-14] MEDS ORDERED: MENTHOL/PHENOL 1 EACH UD MM PRN (09:58)
[2018-08-14] MEDS ORDERED: hydrOXYzine PAMOATE 25 MG CAPSULE (FP) PO PRN (09:58)
[2018-08-14] MEDS ORDERED: METHOCARBAMOL 500 MG TABLET PO PRN (09:58)
[2018-08-14] MEDS ORDERED: MAGNESIUM CITRATE 300 ML BOTTLE PO PRN (09:58)
[2018-08-14] MEDS ORDERED: ACETAMINOPHEN 325 MG TABLET (FP) PO PRN ×2 (09:58)
[2018-08-14] MEDS ORDERED: ALBUTEROL SO4 8 GM HFA INHALER IH PRN (10:13)
[2018-08-14] MEDS: diazePAM 5 MG TABLET PO PRN ×2 (11:32→22:53)
[2018-08-14] MEDS: PRENATAL VITAMINS W/ FOLIC ACID TABLET (FP) PO SCH (11:33)
[2018-08-14] MEDS ORDERED: METHADONE HCL 10 MG TABLET (FOR DETOX USE ONLY) PO ONE ×2 (11:45→23:00)
[2018-08-14] MEDS: NICOTINE 21 MG/24 HOURS TOPICAL PATCH TD SCH (14:14)
[2018-08-14] MEDS: NICOTINE POLACRILEX 2 MG GUM BUC PRN (21:38)
[2018-08-14] MEDS: THIAMINE HCL 100 MG TABLET (FP) PO SCH (22:52)
[2018-08-15 09:58] LABS: BILIRUBIN,TOTAL 0.4 mg/dL (0.2-1); BLOOD UREA NITROGEN 13.5 mg/dL (7-18); CALCIUM 8.5 mg/dL (8.5-10.1); CREATININE 0.8 mg/dL (0.55-1.3); POTASSIUM 4.7 mmol/L (3.5-5.1)
[2018-08-15] MEDS ORDERED: METHADONE HCL 10 MG TABLET (FOR DETOX USE ONLY) PO ONE (10:00)
[2018-08-15 10:16] LABS: HEMATOCRIT 38.6 % (32.4-45.2); HEMOGLOBIN 12.8 GM/dL (10.7-15.3); MCH 31.7 pg (25.7-33.7); MCHC 33.2 g/dl (32.0-36.0); MEAN CELL VOLUME 95.5 fl (80-96); MEAN PLT VOLUME 8.2 fl (7.5-11.1); RBC 4.04 M/mm3 (3.60-5.2); RDW 14.2 % (11.6-15.6); WHITE BLOOD COUNT 7.8 K/mm3 (4.0-10.0)
[2018-08-15 10:25] LABS: PLATELET COUNT 275 K/MM3 (134-434)
[2018-08-15] MEDS: NICOTINE POLACRILEX 2 MG GUM BUC PRN (11:01)
[2018-08-15] MEDS: PRENATAL VITAMINS W/ FOLIC ACID TABLET (FP) PO SCH (11:03)
[2018-08-15] MEDS: NICOTINE 21 MG/24 HOURS TOPICAL PATCH TD SCH (11:03)
--- NOTE | 2018-08-15 11:35 | CONSULT ---
[facility] Psychiatric Consult - Data Date of interview: 08/15/18 Admission source: [facility] Identifying data: Loan Coordinator refused to be seen by psychiatric nurse practitioner for completion of psychiatric consultation. Patient stated "I do not need to see psychiatry, I am fine, I am not suicidal and I do not want to hurt anyone."
--- NOTE | 2018-08-15 12:17 | PN ---
BHS COWS - Scale Resting Pulse: 0= NE 80 or Below Sweatin=Flushed/Facial Moisture Restless Observation: 1= Difficult to Sit Still Pupil Size: 0= Normal to Room Light Bone or Joint Aches: 2= Severe Diffuse Aches Runny Nose/ Eye Tearin= Nasal Congestion GI Upset > 30mins: 0= None Tremor Observation of Outstretched Hands: 1= Tremor [place], Not Seen Yawning Observation: 2= >3x During Session Anxiety or Irritability: 1=Feels Anxious/Irritable Goose Flesh Skin: 0=Smooth Skin COWS Score: 10 BHS Progress Note (SOAP) Subjective: tired sweats chills agitation body aches Objective: 08/15/18 12:16 Vital Signs Temperature 97.3 F L 08/15/18 09:22 Pulse Rate 68 08/15/18 09:22 Respiratory Rate 18 08/15/18 09:22 Blood Pressure 103/59 L 08/15/18 09:22 O2 Sat by Pulse Oximetry (%) Laboratory Tests 08/15/18 08/15/18 08/15/18 07:00 07:00 07:00 WBC 7.8 RBC 4.04 Hgb 12.8 Hct 38.6 MCV 95.5 MCH 31.7 MCHC 33.2 RDW 14.2 Plt Count 275 MPV 8.2 Sodium 142 Potassium 4.7 Chloride 108 H Carbon Dioxide 31 Anion Gap 4 L BUN 13.5 Creatinine 0.8 Est GFR (CKD-EPI)AfAm 108.39 Est GFR (CKD-EPI)NonAf 93.52 Random Glucose 105 Calcium 8.5 Total Bilirubin 0.4 AST 11 L ALT 18 Alkaline Phosphatase 74 Total Protein 6.0 L Albumin 3.0 L RPR Titer Nonreactive aaox3 lying in bed no acute distress Assessment: 08/15/18 12:16 withdrawal sx Plan: continue detox increase fluids
[2018-08-15] MEDS: THIAMINE HCL 100 MG TABLET (FP) PO SCH (23:53)
[2018-08-16] MEDS ORDERED: METHADONE HCL 10 MG TABLET (FOR DETOX USE ONLY) PO ONE (10:00)
[2018-08-16 10:24] LABS: EPI CELLS 18.3 /HPF (0-5/HPF); HYALINE CASTS 4 /lpf (0-8); PH,URINE 5.5 (5.0-8.0); URINE APPEARANCE CLOUDY; URINE BACTERIA 8385.9 /hpf (NEGATIVE); URINE BILIRUBIN NEGATIVE (NEGATIVE); URINE COLOR YELLOW; URINE GLUCOSE (UA) NEGATIVE (NEGATIVE); URINE KETONE NEGATIVE (NEGATIVE); URINE LEUK ESTERASE TRACE (NEGATIVE); URINE NITRITE NEGATIVE (NEGATIVE); URINE PROTEIN NEGATIVE (NEGATIVE); URINE RBC 10 /hpf (0-4); URINE UROBILINOGEN 0.2 mg/dL (0.2-1.0); URINE WBC 18 /hpf (0-5)
[2018-08-16] MEDS: PRENATAL VITAMINS W/ FOLIC ACID TABLET (FP) PO SCH (10:38)
[2018-08-16] MEDS: diazePAM 5 MG TABLET PO PRN (10:41)
[2018-08-16] MEDS: NICOTINE POLACRILEX 2 MG GUM BUC PRN ×3 (10:42→20:11)
[2018-08-16] MEDS: NICOTINE 21 MG/24 HOURS TOPICAL PATCH TD SCH (11:20)
--- NOTE | 2018-08-16 12:00 | PN ---
BHS COWS - Scale Resting Pulse: 0= [place] 80 or Below Sweatin=Flushed/Facial Moisture Restless Observation: 1= Difficult to Sit Still Pupil Size: 0= Normal to Room Light Bone or Joint Aches: 2= Severe Diffuse Aches Runny Nose/ Eye Tearin= Runny Nose/Eyes GI Upset > 30mins: 0= None Tremor Observation of Outstretched Hands: 2= Slight Tremor Visible Yawning Observation: 2= >3x During Session Anxiety or Irritability: 1=Feels Anxious/Irritable Goose Flesh Skin: 0=Smooth Skin COWS Score: 12 BHS Progress Note (SOAP) Subjective: sweats shakes body aches chills irritable Objective: 08/16/18 11:59 Vital Signs Temperature 98.0 F 08/16/18 09:57 Pulse Rate 55 L 08/16/18 09:57 Respiratory Rate 18 08/16/18 09:57 Blood Pressure 100/52 L 08/16/18 09:57 O2 Sat by Pulse Oximetry (%) Laboratory Tests 08/15/18 08/15/18 08/15/18 07:00 07:00 07:00 WBC 7.8 RBC 4.04 Hgb 12.8 Hct 38.6 MCV 95.5 MCH 31.7 MCHC 33.2 RDW 14.2 Plt Count 275 MPV 8.2 Sodium 142 Potassium 4.7 Chloride 108 H Carbon Dioxide 31 Anion Gap 4 L BUN 13.5 Creatinine 0.8 Est GFR (CKD-EPI)AfAm 108.39 Est GFR (CKD-EPI)NonAf 93.52 Random Glucose 105 Calcium 8.5 Total Bilirubin 0.4 AST 11 L ALT 18 Alkaline Phosphatase 74 Total Protein 6.0 L Albumin 3.0 L Urine Color Urine Appearance Urine pH Ur Specific [place] Urine Protein Urine Glucose (UA) Urine Ketones Urine Blood Urine Nitrite Urine Bilirubin Urine Urobilinogen Ur Leukocyte Esterase Urine WBC (Auto) Urine RBC (Auto) Urine Casts (Auto) U Epithel Cells (Auto) Urine Bacteria (Auto) RPR Titer Nonreactive 08/16/18 07:00 WBC RBC Hgb Hct MCV MCH MCHC RDW Plt Count MPV Sodium Potassium Chloride Carbon Dioxide Anion Gap BUN Creatinine Est GFR (CKD-EPI)AfAm Est GFR (CKD-EPI)NonAf Random Glucose Calcium Total Bilirubin AST ALT Alkaline Phosphatase Total Protein Albumin Urine Color Yellow Urine Appearance Cloudy Urine pH 5.5 D Ur Specific [place] 1.019 Urine Protein Negative Urine Glucose (UA) Negative Urine Ketones Negative Urine Blood Negative Urine Nitrite Negative Urine Bilirubin Negative Urine Urobilinogen 0.2 Ur Leukocyte Esterase Trace Urine WBC (Auto) 18 Urine RBC (Auto) 10 Urine Casts (Auto) 4 U Epithel Cells (Auto) 18.3 Urine Bacteria (Auto) 8385.9 RPR Titer labs noted aaox3 ambulating no acute distress repeat u/a Assessment: 08/16/18 11:59 withdrawal sx Plan: continue detox increase fluids u/a ordered
[2018-08-16 19:47] LABS: EPI CELLS 13.9 /HPF (0-5/HPF); HYALINE CASTS 13 /lpf (0-8); URINE APPEARANCE CLEAR; URINE BACTERIA >9000 /hpf (NEGATIVE); URINE BILIRUBIN NEGATIVE (NEGATIVE); URINE COLOR YELLOW; URINE GLUCOSE (UA) NEGATIVE (NEGATIVE); URINE KETONE NEGATIVE (NEGATIVE); URINE LEUK ESTERASE TRACE (NEGATIVE); URINE NITRITE NEGATIVE (NEGATIVE); URINE PROTEIN NEGATIVE (NEGATIVE); URINE RBC 2 /hpf (0-4); URINE UROBILINOGEN 0.2 mg/dL (0.2-1.0); URINE WBC 11 /hpf (0-5)
[2018-08-16] MEDS: THIAMINE HCL 100 MG TABLET (FP) PO SCH (22:48)
[2018-08-17] MEDS ORDERED: METHADONE HCL 5 MG TABLET (FOR DETOX USE ONLY) ONE (09:46)
[2018-08-17] MEDS ORDERED: METHADONE HCL 10 MG TABLET (FOR DETOX USE ONLY) ONE (09:47)
[2018-08-17] MEDS ORDERED: METHADONE (DETOX) 10 MG, METHADONE (DETOX) 5 MG PO ONE (10:00)
[2018-08-17] MEDS ORDERED: METHADONE HCL 10 MG TABLET (FOR DETOX USE ONLY) PO ONE (10:00)
[2018-08-17] MEDS: PRENATAL VITAMINS W/ FOLIC ACID TABLET (FP) PO SCH (10:21)
[2018-08-17] MEDS: NICOTINE 21 MG/24 HOURS TOPICAL PATCH TD SCH (10:21)
[2018-08-17] MEDS: NICOTINE POLACRILEX 2 MG GUM BUC PRN ×2 (10:23→17:13)
--- NOTE | 2018-08-17 11:47 | PN ---
BHS COWS - Scale Resting Pulse: 0= [place] 80 or Below Sweatin=Flushed/Facial Moisture Restless Observation: 0= Sits Still Pupil Size: 0= Normal to Room Light Bone or Joint Aches: 2= Severe Diffuse Aches Runny Nose/ Eye Tearin= Nasal Congestion GI Upset > 30mins: 2= Nausea/Diarrhea Tremor Observation of Outstretched Hands: 2= Slight Tremor Visible Yawning Observation: 0= None Anxiety or Irritability: 0= None Goose Flesh Skin: 0=Smooth Skin COWS Score: 9 BHS Progress Note (SOAP) Subjective: sweats shakes diarrhea generalized pain Objective: 08/17/18 11:45 A & O x 3 Gait steady irritable No acute distress Vital Signs Temperature 98.1 F 08/17/18 10:00 Pulse Rate 64 08/17/18 10:00 Respiratory Rate 18 08/17/18 10:00 Blood Pressure 108/55 L 08/17/18 10:00 O2 Sat by Pulse Oximetry (%) Urine Test Results Urine Color Yellow 08/16/18 15:15 Urine Appearance Clear 08/16/18 15:15 Urine pH 6.0 (5.0-8.0) 08/16/18 15:15 Ur Specific [place] 1.019 (1.010-1.035) 08/16/18 15:15 Urine Protein Negative (NEGATIVE) 08/16/18 15:15 Urine Glucose (UA) Negative (NEGATIVE) 08/16/18 15:15 Urine Ketones Negative (NEGATIVE) 08/16/18 15:15 Urine Blood Negative (NEGATIVE) 08/16/18 15:15 Urine Nitrite Negative (NEGATIVE) 08/16/18 15:15 Urine Bilirubin Negative (NEGATIVE) 08/16/18 15:15 Ur Leukocyte Esterase Trace (NEGATIVE) 08/16/18 15:15 Assessment: 08/17/18 11:46 withdrawal sx Plan: Continue detox Continue increase oral hydration
[2018-08-17] MEDS: THIAMINE HCL 100 MG TABLET (FP) PO SCH (23:06)
[2018-08-18] MEDS ORDERED: METHADONE HCL 5 MG TABLET (FOR DETOX USE ONLY) PO ONE (06:00)
[2018-08-18 09:53] VITALS: BP 114/70; PULSE 66; TEMP 97.2
[2018-08-18] MEDS ORDERED: METHADONE HCL 10 MG TABLET (FOR DETOX USE ONLY) PO ONE (10:00)
[2018-08-18] MEDS: PRENATAL VITAMINS W/ FOLIC ACID TABLET (FP) PO SCH (10:21)
[2018-08-18] MEDS: NICOTINE 21 MG/24 HOURS TOPICAL PATCH TD SCH (10:22)
[2018-08-18] MEDS: NICOTINE POLACRILEX 2 MG GUM BUC PRN (11:17)
--- NOTE | 2018-08-18 12:02 | DS ---
[facility] Detox Discharge Summary Admission Date: 08/14/18 Discharge Date: 08/18/18 - History Present History: Cocaine Dependence, Opioid Dependence - Physical Exam Results Vital Signs: Vital Signs Temperature 97.2 F L 08/18/18 09:52 Pulse Rate 66 08/18/18 09:52 Respiratory Rate 16 08/18/18 09:52 Blood Pressure 114/70 08/18/18 09:52 O2 Sat by Pulse Oximetry (%) - Treatment Hospital Course: Detox Protocol Followed, Detoxed Safely, Responded well, Discharged Condition Good, Rehab Referral Accepted - Medication Discharge Medications: Ambulatory Orders NK [No Known Home Medication] 08/14/18 - Diagnosis (1) Cocaine abuse Current Visit: Yes Status: Chronic (2) PTSD (post-traumatic stress disorder) Current Visit: No Status: Acute (3) Paranoid schizophrenia, chronic condition Current Visit: No Status: Acute (4) Seizure Current Visit: No Status: Suspected Qualifiers: Convulsion type: unspecified Qualified Code(s): R56.9 - Unspecified convulsions (5) Asthma Current Visit: Yes Status: Chronic Qualifiers: Asthma severity: mild Asthma persistence: unspecified Asthma complication type: unspecified Qualified Code(s): J45.909 - Unspecified asthma , uncomplicated (6) Cocaine dependence Current Visit: Yes Status: Chronic Qualifiers: Substance use status: uncomplicated Qualified Code(s): F14.20 - Cocaine dependence, uncomplicated (7) IVDU (intravenous drug user) Current Visit: Yes Status: Chronic (8) Nicotine dependence Current Visit: Yes Status: Chronic Qualifiers: Nicotine product type: cigarettes Substance use status: uncomplicated Qualified Code(s): F17.210 - Nicotine dependence, cigarettes, uncomplicated (9) Opioid dependence with withdrawal Current Visit: Yes Status: Chronic (10) Substance induced mood disorder Current Visit: No Status: Chronic - AMA Did Patient Leave Against Medical Advice: No (pt states going to get her things and return to methadone program in am)
[2018-08-19] MEDS ORDERED: METHADONE HCL 5 MG TABLET (FOR DETOX USE ONLY) PO ONE (06:00)
== END 2018-08-18 12:03 | disposition home or self-care (01) | DRG 897 ==
LOC: YASAS 08:14 → Y6N 10:06
PROVIDERS: ADMIT Surgery; ATTEND Surgery
PROC: HZ2ZZZZ Detoxification Services for Substance Abuse Treatment (ICD-10-PCS; principal; 2018-08-14)
DX: F11.23 Opioid dependence with withdrawal (principal); F14.20 Cocaine dependence, uncomplicated; F20.0 Paranoid schizophrenia; F17.210 Nicotine dependence, cigarettes, uncomplicated; F19.24 Other psychoactive substance dependence with psychoactive substance-induced mood disorder; F43.10 Post-traumatic stress disorder, unspecified; E80.6 Other disorders of bilirubin metabolism; J45.909 Unspecified asthma, uncomplicated; R63.4 Abnormal weight loss; Z68.23 Body mass index [BMI] 23.0-23.9, adult; Z86.2 Personal history of diseases of the blood and blood-forming organs and certain disorders involving the immune mechanism; Z91.5 Personal history of self-harm; Z88.1 Allergy status to other antibiotic agents; Z91.013 Allergy to seafood; Z59.0 Homelessness
CPT/HCPCS: 36415; 80053; 81003; 85027; 86593

== ENCOUNTER 2018-08-19 10:04 | Inpatient (IN) | payer OTHER ==
[2018-08-19 12:18] VITALS: BMI 23.3
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
[2018-08-19] MEDS ORDERED: guaiFENesin 200 MG/10 ML 10 ML UNIT-DOSE CUPS PO PRN (14:04)
[2018-08-19] MEDS ORDERED: MENTHOL/PHENOL 1 EACH UD MM PRN (14:04)
[2018-08-19] MEDS ORDERED: MAG HYDROX/AL HYDROX/SIMETH 30 ML UNIT-DOSE CUP PO PRN (14:04)
[2018-08-19] MEDS ORDERED: MAGNESIUM HYDROX 2400MG/30ML ORAL SUSPENSION 30 ML CUP PO PRN (14:04)
[2018-08-19] MEDS ORDERED: hydrOXYzine PAMOATE 50 MG CAPSULE (FP) PO PRN (14:04)
[2018-08-19] MEDS ORDERED: LOPERAMIDE HCL 2 MG CAPSULE PO PRN (14:04)
[2018-08-19] MEDS ORDERED: P-EPHED 60MG/TRIPROLIDI 2.5MG TABLET PO PRN (14:04)
[2018-08-19] MEDS ORDERED: ACETAMINOPHEN 325 MG TABLET (FP) PO PRN (14:04)
[2018-08-19] MEDS ORDERED: IBUPROFEN 400 MG TABLET (FP) PO PRN (14:04)
[2018-08-19] MEDS ORDERED: MAGNESIUM CITRATE 300 ML BOTTLE PO PRN (14:04)
--- NOTE | 2018-08-19 15:24 | HP ---
CIWA Score - Admission Criteria OASAS Guidelines: Admission for Medically Managed Detox: Requires at least one of the followin. CIWA greater than 12 2. Seizures within the past 24 hours 3. Delirium tremens within the past 24 hours 4. Hallucinations within the past 24 hours 5. Acute intervention needed for co occurring medical disorder 6. Acute intervention needed for co occurring psychiatric disorder 7. Severe withdrawal that cannot be handled at a lower level of care (continued vomiting, continued diarrhea, abnormal vital signs) requiring intravenous medication and/or fluids 8. Admission ROS [facility] Chief Complaint: PATIENT PRESENTS FOR REHAB SERVICES FOR OPIOD DEPENDENCE. Allergies/Adverse Reactions: Allergies Allergy/AdvReac Type Severity Reaction Status Date / Time honey [Honey] Allergy Severe Swelling Verified 08/19/18 12:14 vancomycin HCl Allergy Intermediate Itching Verified 08/19/18 12:14 [From Vancocin] shellfish derived Allergy Difficulty Verified 08/19/18 12:14 Breathing History of Present Illness: PATIENT IS KNOWN FOR FACILITY DUE TO PREVIOUS ADMISSIONS. PATIENT RECENTLY COMPLETED DETOX (LAST DAY 08/18/18)FOR OPIOID DEPENDENCE. PATIENT STATES SHE HAS BEEN INJECTING 15 BAGS OF HEROIN ON A DAILY BASIS WITH LAST DOSE 08/12/18. PATIENT DENIES HX OF SEIZURES BUT HAS HAD MANY BLACKOUTS. PMH INCLUDES ANEMIA, NICOTINE DEPENDENCE, WEIGHT LOSS AND SCHIZOPHRENIA. PATIENT DENIES SI/HI AT THIS TIME. +HX OF SMOKING COCAINE SINCE AGE 16, 40 DOLLARS DAILY WITH LAST USE . Exam Limitations: No Limitations - Ebola screening Have you traveled outside of the country in the last 21 days: No Have you had contact with anyone from an Ebola affected area: No Have you been sick,other than usual withdrawal symptoms: No Do you have a fever: No - Review of Systems Constitutional: Chills, Night Sweats, Unexplained wgt Loss EENT: reports: Nose Congestion Respiratory: reports: No Symptoms reported Cardiac: reports: No Symptoms Reported GI: reports: Poor Appetite : reports: No Symptoms Reported Musculoskeletal: reports: Back Pain, Joint Pain, Muscle Pain Integumentary: reports: Sweating, Other (TRACK [place]) Neuro: reports: Headache Endocrine: reports: Unexplained Weight Loss Hematology: reports: Anemia Psychiatric: reports: Orientated x3, Anxious Patient History - Patient Medical History Hx Anemia: Yes (NO MEDICATIONS, h/o menorrhagia) Hx Asthma: Yes Hx Chronic Obstructive Pulmonary Disease (COPD): No Hx Cancer: No Hx Cardiac Disorders: No Hx Congestive Heart Failure: No Hx Hypertension: No Hx Hypercholesterolemia: No Hx Pacemaker: No HX Cerebrovascular Accident: No Hx Seizures: No Hx Dementia: No Hx Diabetes: No Hx Gastrointestinal Disorders: No Hx Liver Disease: No Hx Genitourinary Disorders: No Hx Sexually Transmitted Disorders: No Hx Renal Disease (ESRD): No Hx Thyroid Disease: No Hx Human Immunodeficiency Virus (HIV): No (07/26/18 NEGATIVE) Hx Hepatitis C: No Hx Depression: Yes Hx Suicide Attempt: No Hx Bipolar Disorder: No Hx Schizophrenia: Yes - Patient Surgical History Past Surgical History: Yes Hx Neurologic Surgery: No Hx Cataract Extraction: No Hx Cardiac Surgery: No Hx Lung Surgery: No Hx Breast Surgery: No Hx Breast Biopsy: No Hx Abdominal Surgery: No Hx Appendectomy: No Hx Cholecystectomy: No Hx Genitourinary Surgery: No Hx Section: Yes (x 19 years ago) Hx Orthopedic Surgery: No Hx Hysterectomy: No Anesthesia Reaction: No - PPD History Previous Implant?: Yes Documented Results: Negative w/o proof Implanted On Prior R Admission?: Yes Date: 07/05/18 Results: 1 PPD to be Administered?: No - Reproductive History Patient is a Female of Child Bearing Age (11 -55 yrs old): Yes Patient : No - Smoking Cessation Smoking history: Current every day smoker Have you smoked in the past 12 months: Yes Aproximately how many cigarettes per day: 20 Hx Chewing Tobacco Use: No Initiated information on smoking cessation: Yes 'Breaking Loose' booklet given: 08/19/18 - Substance & Tx. History Hx Alcohol Use: No Hx Substance Use: Yes Substance Use Type: Cocaine, Heroin Hx Substance Use Treatment: Yes - Substances abused Heroin Substance route: Injection Frequency: Daily Amount used: 15 bags Age of first use: 20 Date of last use: 08/12/18 Crack Substance route: Smoking Frequency: 3-6 times per week Amount used: $40 Age of first use: 16 Date of last use: 08/11/18 Family Disease History - Family Disease History Family Disease History: Diabetes: Grandparent (alcohol), Other: Grandparent, Father (crack), Mother (lupus, crack) Admission Physical Exam BHS - Vital Signs Vital Signs: Vital Signs - 24 hr 08/19/18 08/19/18 08/19/18 11:51 12:23 14:51 Temperature 97.3 F L 97.3 F L 97.3 F L Pulse Rate 73 73 69 Respiratory 18 18 18 Rate Blood Pressure 98/64 98/64 108/70 - Physical General Appearance: Yes: Disheveled, Thin, Anxious HEENTM: Yes: EOMI, Hearing grossly Normal, Normocephalic, Normal Voice, ROMEO, Pharynx Normal, Nasal Congestion Respiratory: Yes: Chest Non-Tender, Lungs Clear, Normal Breath Sounds, No Accessory Muscle Use Neck: Yes: No masses,lesions,Nodules, Supple, Trachea in good position Breast: Yes: Breast Exam Deferred Cardiology: Yes: Regular Rhythm, Regular Rate, S1, S2 Abdominal: Yes: Normal Bowel Sounds, Non Tender, Soft Genitourinary: Yes: Within Normal Limits Back: Yes: Muscle Spasm Musculoskeletal: Yes: full range of Motion, Gait Steady, Back pain, Muscle Pain Extremities: Yes: Normal Range of Motion, Non-Tender, Other (TRACK [place]) Neurological: Yes: photographic double II-XII NML intact, Fully Oriented, Alert, Motor Strength 5/5, Normal Response, Other (ANXIOUS) Integumentary: Yes: Normal Color, Dry, Warm, Track Rush Lymphatic: Yes: Within Normal Limits - Diagnostic (1) Opioid dependence Current Visit: Yes Status: Chronic Qualifiers: Substance use status: uncomplicated Qualified Code(s): F11.20 - Opioid dependence, uncomplicated (2) Cocaine dependence Current Visit: No Status: Chronic Qualifiers: Substance use status: uncomplicated Qualified Code(s): F14.20 - Cocaine dependence, uncomplicated (3) IVDU (intravenous drug user) Current Visit: Yes Status: Chronic (4) Nicotine dependence Current Visit: Yes Status: Chronic Qualifiers: Nicotine product type: cigarettes Substance use status: uncomplicated Qualified Code(s): F17.210 - Nicotine dependence, cigarettes, uncomplicated Cleared for Admission BHS - Detox or Rehab Claeared for Rehab Admission: Yes Breathalyzer - Breathalyzer Breathalyzer: 0 POC Urine test - Result Urine Test Results: Negative - NO line present Urine Drug Screen - Test Device Lot number: [id number] Expiration date: 05/02/20 - Control Is test valid?: Yes - Results Drug screen NEGATIVE: No Urine drug screen results: REID-Cocaine, MOP-Opiates, MTD-Methadone, BZO- Benzodiazepines Inpatient Rehab Admission - Rehab Decision to Admit Inpatient rehab admission?: Yes - Initial Determination Are CD services needed?: Yes Free of communicable disease: Yes Not in need of hospitalization: No - Rehab Admission Criteria Previous failed treatment: Yes Poor recovery environment: Yes Comorbidities: Yes Lacks judgement: No Patient is meeting Inpatient Rehab admission criteria:: Yes
[2018-08-19] MEDS: THIAMINE HCL 100 MG TABLET (FP) PO SCH (21:29)
[2018-08-19] MEDS ORDERED: MELATONIN 5 MG TABLETS PO PRN (22:00)
[2018-08-20] MEDS ORDERED: cloNIDine HCL 0.1 MG TABLET PO PRN (08:40)
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
[2018-08-20] MEDS: PRENATAL VITAMINS W/ FOLIC ACID TABLET (FP) PO SCH (10:22)
[2018-08-20] MEDS: NICOTINE 21 MG/24 HOURS TOPICAL PATCH TD SCH (10:22)
[2018-08-20] MEDS: CYCLOBENZAPRINE HCL 10 MG TABLET (FP) PO SCH ×2 (13:11→21:37)
[2018-08-20] MEDS: NICOTINE POLACRILEX 2 MG GUM BUC PRN (17:23)
[2018-08-20] MEDS: THIAMINE HCL 100 MG TABLET (FP) PO SCH (21:37)
[2018-08-20] MEDS ORDERED: QUEtiapine FUMARATE 100 MG TABLET (FP) PO SCH (22:00)
[2018-08-21] MEDS: CYCLOBENZAPRINE HCL 10 MG TABLET (FP) PO SCH ×3 (07:51→21:43)
[2018-08-21] MEDS: PRENATAL VITAMINS W/ FOLIC ACID TABLET (FP) PO SCH (10:36)
[2018-08-21] MEDS: NICOTINE 21 MG/24 HOURS TOPICAL PATCH TD SCH (10:36)
--- NOTE | 2018-08-21 12:08 | PN ---
BHS Progress Note (SOAP) Subjective: patient is leaving AMA. Refusing VS and other care and refusing urine toxicology Objective: VS stable. medically stable for discharge. Laboratory Last Values POC Urine HCG, Qual Negative 08/19/18 12:24 Vital Signs (72 hours) 08/19/18 08/19/18 08/19/18 11:51 12:23 14:51 Temperature 97.3 F L 97.3 F L 97.3 F L Pulse Rate 73 73 69 Respiratory 18 18 18 Rate Blood Pressure 98/64 98/64 108/70 08/20/18 08/20/18 08/20/18 00:30 03:30 07:16 Temperature 97.3 F L Pulse Rate 54 L Respiratory 17 18 18 Rate Blood Pressure 102/56 L 08/21/18 08/21/18 03:30 07:05 Temperature Pulse Rate Respiratory 18 18 Rate Blood Pressure 08/21/18 12:06 Assessment: Patient refusing care and leaving AMA. Medically stable but in withdrawal Discharge Dx: IVDU, Cocaine dependence opioid Dependence. 08/21/18 12:09 Plan: Encouraged patient to stay; she refused. Will not be attending an aftercare program or seeking medical care. Does not need medications transmitted to a pharmacy. Encouraged patient to return to treatment when ready.
[2018-08-21] MEDS: NICOTINE POLACRILEX 2 MG GUM BUC PRN ×4 (12:13→21:45)
--- NOTE | 2018-08-21 12:32 | PN ---
S COWS - Scale Resting Pulse: 0= [place] 80 or Below Sweatin= Beads of Sweat on Face Restless Observation: 1= Difficult to Sit Still Pupil Size: 1= Pupils >than Normal Bone or Joint Aches: 4=Acute Joint/Muscle Pain Runny Nose/ Eye Tearin= Nasal Congestion GI Upset > 30mins: 1= Stomach Cramp Tremor Observation of Outstretched Hands: 2= Slight Tremor Visible Yawning Observation: 0= None Anxiety or Irritability: 4=Extreme Anxiety Goose Flesh Skin: 0=Smooth Skin (Urine Toxicology shows cocaine, opioid, methadone, benzos) COWS Score: 17 S Progress Note (SOAP) Subjective: Patient is experiencing withdrawal; wanted to leave but agreed to start suboxone. Last dose of methadone was on 08/19. Last use of heroin was 08/17 or . Has taken suboxone before, which she has obtained on the street. Objective: See COWS; Vital Signs (72 hours) 08/19/18 08/19/18 08/19/18 11:51 12:23 14:51 Temperature 97.3 F L 97.3 F L 97.3 F L Pulse Rate 73 73 69 Respiratory 18 18 18 Rate Blood Pressure 98/64 98/64 108/70 08/20/18 08/20/18 08/20/18 00:30 03:30 07:16 Temperature 97.3 F L Pulse Rate 54 L Respiratory 17 18 18 Rate Blood Pressure 102/56 L 08/21/18 08/21/18 03:30 07:05 Temperature Pulse Rate Respiratory 18 18 Rate Blood Pressure 08/21/18 12:31 08/21/18 12:33 URINE DRUG SCREEN RESULTS Drug Screen Negative No Urine Drug Screen Results REID-Cocaine,OPI-Opiates,BZO-Benzodiazepines,MTD- Methadone Assessment: Active withdrawal 08/21/18 12:32 Plan: Suboxon 2mg started today. Will titrate as needed. Counselor is aware of patient 's decision to start suboxone and will connect patient with [facility] for aftercare.
[2018-08-21] MEDS: BUPRENORPHINE/NALOXONE 2 MG/0.5 MG FILM PACKET SL SCH (12:34)
--- NOTE | 2018-08-21 17:52 | PN ---
Psychiatric Progress Note Vital Signs: Vital Signs Period Temp Pulse Resp BP Sys/Taylor Pulse Ox Last 24 Hr Date of Session: 08/21/18 Chief Complaint:: " I can't sleep." HPI: Patient reports difficulty sleeping and reports muscle pain from withdrawal of opioid use. ROS: Patient coherent, alert and oriented X3. Current Medications: Active Medications Generic Name Dose Route Start Last Admin Trade Name Freq PRN Reason Stop Dose Admin Acetaminophen 650 mg 08/19/18 14:04 Tylenol - PO Q4H PRN FEVER Al Hydroxide/Mg Hydroxide 30 ml 08/19/18 14:04 Mylanta Oral Suspension - PO Q6H PRN DYSPEPSIA Buprenorphine/Naloxone 1 each 08/21/18 12:30 08/21/18 12:34 Suboxone 2mg/0.5mg Sl Film - SL 1 each DAILY J LUIS Administration Clonidine 0.1 mg 08/20/18 08:40 Catapres - PO BID PRN WITHDRAWAL(CONT SUBST) Cyclobenzaprine HCl 10 mg 08/20/18 14:00 08/21/18 14:13 Flexeril - PO 10 mg TID J LUIS Administration Eucalyptus/Menthol/Phenol/Sorbitol 1 each 08/19/18 14:04 Cepastat Lozenge - MM Q4H PRN SORE THROAT Guaifenesin 10 ml 08/19/18 14:04 Robitussin - PO Q6H PRN COUGH Hydroxyzine Pamoate 50 mg 08/19/18 14:04 Vistaril - PO Q4H PRN AGITATION Ibuprofen 400 mg 08/19/18 14:04 Motrin - PO Q6H PRN Pain level 4-6 Loperamide HCl 4 mg 08/19/18 14:04 Imodium - PO Q6H PRN DIARRHEA Magnesium Citrate 300 ml 08/19/18 14:04 Citroma - PO Q48H PRN CONSTIPATION Magnesium Hydroxide 30 ml 08/19/18 14:04 Milk Of Magnesia - PO DAILY PRN CONSTIPATION Melatonin 5 mg 08/19/18 22:00 Melatonin PO HS PRN INSOMNIA Nicotine 21 mg 08/20/18 10:00 08/21/18 10:36 Nicoderm Patch - TD Not Given DAILY J LUIS Nicotine Polacrilex 4 mg 08/21/18 12:26 08/21/18 17:19 Nicorette Gum - BUC 4 mg Q2H PRN Administration NICOTINE REPLACEMENT RX Multivit/Folic Acid/Iron 1 tab 08/20/18 10:00 08/21/18 10:36 Vitamins ([facility]) - PO Not Given DAILY J LUIS Pseudoephedrine/Triprolidine 1 combo 08/19/18 14:04 Actifed - PO TID PRN NASAL CONGESTION Thiamine HCl 100 mg 08/19/18 22:00 08/20/18 21:37 Vitamin B1 - PO 100 mg HS J LUIS Administration Medication(s) Change(s): Yes. D/C seroquel 100mg and order seroquel 200mg HS. Current Side Effect: No Lab tests ordered: No Lab tests reviewed: Yes Provider note:: Patient reports difficulty sleeping and restlessness. States she continues to withdraw from opioid while in rehab. As per external records a prescription of seroquel 200mg and seroquel 50mg BID was electronically sent to patient's pharmacy on 08/08/18. Patient requesting an increase in seroquel. Will d/c seroquel 100mg and order Seroquel 200mg HS. Benefits and side effects discussed. Verbal consent given. Total face to face time:: 25 Mental Status Exam - Mental Status Exam Alert and Oriented to: Time, Place, Person Cognitive Function: Good Patient Appearance: Well Groomed Mood: Anxious Affect: Appropriate Patient Behavior: Cooperative Speech Pattern: Appropriate Voice Loudness: Moderately Soft/Quiet Thought Process: Goal Oriented Thought Disorder: Not Present Hallucinations: Denies Suicidal Ideation: Denies Homicidal Ideation: Denies Insight/Judgement: Poor Sleep: Poorly Appetite: Fair Muscle strength/Tone: Normal Gait/Station: Normal Psychiatric Treatment Plan - Problem List (1) Paranoid schizophrenia, chronic condition Current Visit: Yes (2) Opioid dependence Current Visit: Yes Qualifiers: Substance use status: uncomplicated Qualified Code(s): F11.20 - Opioid dependence, uncomplicated (3) Cocaine dependence Current Visit: Yes Qualifiers: Substance use status: uncomplicated Qualified Code(s): F14.20 - Cocaine dependence, uncomplicated (4) Nicotine dependence Current Visit: Yes Qualifiers: Nicotine product type: cigarettes Substance use status: uncomplicated Qualified Code(s): F17.210 - Nicotine dependence, cigarettes, uncomplicated
[2018-08-21] MEDS: THIAMINE HCL 100 MG TABLET (FP) PO SCH (21:43)
[2018-08-21] MEDS: QUEtiapine FUMARATE 100 MG TABLET (FP) PO SCH (21:44)
[2018-08-22] MEDS: CYCLOBENZAPRINE HCL 10 MG TABLET (FP) PO SCH (07:05)
[2018-08-22] MEDS: NICOTINE POLACRILEX 2 MG GUM BUC PRN ×5 (08:56→19:35)
[2018-08-22] MEDS: PRENATAL VITAMINS W/ FOLIC ACID TABLET (FP) PO SCH (09:56)
[2018-08-22] MEDS: BUPRENORPHINE/NALOXONE 2 MG/0.5 MG FILM PACKET SL SCH (09:56)
[2018-08-22] MEDS: NICOTINE 21 MG/24 HOURS TOPICAL PATCH TD SCH (09:56)
[2018-08-22] MEDS ORDERED: CYCLOBENZAPRINE HCL 10 MG TABLET (FP) PO SCH (10:00)
--- NOTE | 2018-08-22 10:41 | PN ---
BHS COWS - Scale Resting Pulse: 0= [place] 80 or Below Sweatin=Flushed/Facial Moisture Restless Observation: 1= Difficult to Sit Still Pupil Size: 0= Normal to Room Light Bone or Joint Aches: 4=Acute Joint/Muscle Pain Runny Nose/ Eye Tearin= Runny Nose/Eyes GI Upset > 30mins: 1= Stomach Cramp Tremor Observation of Outstretched Hands: 2= Slight Tremor Visible Yawning Observation: 0= None Anxiety or Irritability: 1=Feels Anxious/Irritable Goose Flesh Skin: 0=Smooth Skin COWS Score: 13 S Progress Note (SOAP) Subjective: Patient continues to experience withdrawal symptoms. Objective: See [facility] Vital Signs (72 hours) 08/19/18 08/19/18 08/19/18 11:51 12:23 14:51 Temperature 97.3 F L 97.3 F L 97.3 F L Pulse Rate 73 73 69 Respiratory 18 18 18 Rate Blood Pressure 98/64 98/64 108/70 08/20/18 08/20/18 08/20/18 00:30 03:30 07:16 Temperature 97.3 F L Pulse Rate 54 L Respiratory 17 18 18 Rate Blood Pressure 102/56 L 08/21/18 08/21/18 08/22/18 03:30 07:05 00:30 Temperature Pulse Rate Respiratory 18 18 18 Rate Blood Pressure 08/22/18 08/22/18 03:30 06:58 Temperature 97.6 F Pulse Rate 62 Respiratory 18 18 Rate Blood Pressure 103/64 08/22/18 10:40 Assessment: Substance Use Withdrawal. 08/22/18 10:40 Plan: Suboxone increased to 4mg/day.
[2018-08-22] MEDS ORDERED: BUPRENORPHINE/NALOXONE 2 MG/0.5 MG FILM PACKET SL ONE (11:00)
--- NOTE | 2018-08-22 12:13 | PN ---
S Progress Note Note: Refusing all doses of flexeril, states "it does not work for me." Order discontinued.
--- NOTE | 2018-08-22 13:33 | PN ---
[facility] Progress Note Note: UA DONE IN DETOX SHOWS 9000 BACTERIA. (PLEASE SEE DETOX LABS) UA AND UC TO BE REPEATED.
[2018-08-22] MEDS: THIAMINE HCL 100 MG TABLET (FP) PO SCH (21:29)
[2018-08-22] MEDS: QUEtiapine FUMARATE 100 MG TABLET (FP) PO SCH (21:30)
[2018-08-22] MEDS: metroNIDAZOLE 250 MG TABLET PO SCH (21:31)
[2018-08-23] MEDS: NICOTINE POLACRILEX 2 MG GUM BUC PRN ×5 (09:03→19:37)
[2018-08-23] MEDS ORDERED: BUPRENORPHINE/NALOXONE 2 MG/0.5 MG FILM PACKET SL SCH (10:00)
[2018-08-23] MEDS: PRENATAL VITAMINS W/ FOLIC ACID TABLET (FP) PO SCH (10:03)
[2018-08-23] MEDS: NICOTINE 21 MG/24 HOURS TOPICAL PATCH TD SCH (10:03)
[2018-08-23] MEDS: metroNIDAZOLE 250 MG TABLET PO SCH ×2 (10:03→21:10)
--- NOTE | 2018-08-23 14:00 | PN ---
BHS COWS - Scale Resting Pulse: 1= [place] 81-100 Sweatin= Chills/Flushing Restless Observation: 1= Difficult to Sit Still Pupil Size: 1= Pupils >than Normal Bone or Joint Aches: 1= Mild Discomfort Runny Nose/ Eye Tearin= None GI Upset > 30mins: 0= None Tremor Observation of Outstretched Hands: 0= None Yawning Observation: 0= None Anxiety or Irritability: 1=Feels Anxious/Irritable Goose Flesh Skin: 0=Smooth Skin COWS Score: 6 BHS Progress Note (SOAP) Subjective: PATIENT SEEN FOR SUBOXONE MAT ADJUSTMENT FOR OPIOD DEPENDENCE. PATIENT STATES SHE HAS OPIOD CRAVINGS, CHILLS, ANXIETY AND RESTLESSNESS WITH CURRENT DOSE OF SUBOXONE 4MG DAILY. Objective: 08/23/18 13:58 Laboratory Tests 08/19/18 12:24 POC Urine HCG, Qual Negative Vital Signs Temperature 97.5 F L 08/23/18 07:05 Pulse Rate 67 08/23/18 07:05 Respiratory Rate 18 08/23/18 07:05 Blood Pressure 110/68 08/23/18 07:05 O2 Sat by Pulse Oximetry (%) PE: ALERT AND ORIENTED X 3 +PERRLA, PUPILS MILDLY DILATED, EOMS INTACT BL SKIN WARM AND FLUSHED EXT FULL ROM, NO VISIBLE TREMORS +RESTLESSNESS/ANXIETY PACING IN HALLWAY Assessment: 08/23/18 13:59 A/P: SUBOXONE MAT OPIOD DISORDER Plan: WILL GIVE STAT DOSE OF ADDITIONAL 4MG OF SUBOXONE MAT START SUBOXONE 8MG/2MG SL DAILY TOMORROW CONTINUE REHAB SERVICES MONITOR CLINICALLY
[2018-08-23] MEDS ORDERED: BUPRENORPHINE/NALOXONE 2 MG/0.5 MG FILM PACKET SL ONE (14:20)
[2018-08-23] MEDS: THIAMINE HCL 100 MG TABLET (FP) PO SCH (21:10)
[2018-08-23] MEDS: QUEtiapine FUMARATE 100 MG TABLET (FP) PO SCH (21:10)
[2018-08-24] MEDS: NICOTINE POLACRILEX 2 MG GUM BUC PRN ×5 (08:00→21:26)
[2018-08-24] MEDS: metroNIDAZOLE 250 MG TABLET PO SCH ×2 (09:50→21:25)
[2018-08-24] MEDS: BUPRENORPHINE/NALOXONE 8 MG/2 MG FILM PACKET SL SCH (09:50)
[2018-08-24] MEDS: PRENATAL VITAMINS W/ FOLIC ACID TABLET (FP) PO SCH (09:50)
[2018-08-24] MEDS: NICOTINE 21 MG/24 HOURS TOPICAL PATCH TD SCH (09:50)
--- NOTE | 2018-08-24 12:48 | PN ---
S Progress Note Note: urine for c/s showed positive for lactose fermenting negative bacilli,colony count over 100,000 uti stated on bactrim ds 1 tab po bid for 7 days,fluid
[2018-08-24] MEDS: SULFAMETHOXAZOLE/TRIMETHOPRIM 800MG/160MG D.S. TABLET PO SCH ×2 (13:02→21:25)
[2018-08-24] MEDS: THIAMINE HCL 100 MG TABLET (FP) PO SCH (21:25)
[2018-08-24] MEDS: QUEtiapine FUMARATE 100 MG TABLET (FP) PO SCH (21:25)
[2018-08-25] MEDS: metroNIDAZOLE 250 MG TABLET PO SCH ×2 (09:59→21:15)
[2018-08-25] MEDS: BUPRENORPHINE/NALOXONE 8 MG/2 MG FILM PACKET SL SCH (09:59)
[2018-08-25] MEDS: NICOTINE 21 MG/24 HOURS TOPICAL PATCH TD SCH (10:00)
[2018-08-25] MEDS: PRENATAL VITAMINS W/ FOLIC ACID TABLET (FP) PO SCH (10:00)
[2018-08-25] MEDS: SULFAMETHOXAZOLE/TRIMETHOPRIM 800MG/160MG D.S. TABLET PO SCH ×2 (10:00→21:15)
[2018-08-25] MEDS: NICOTINE POLACRILEX 2 MG GUM BUC PRN ×4 (10:02→21:15)
[2018-08-25] MEDS: QUEtiapine FUMARATE 100 MG TABLET (FP) PO SCH (21:15)
[2018-08-25] MEDS: THIAMINE HCL 100 MG TABLET (FP) PO SCH (21:15)
[2018-08-26 07:12] VITALS: BP 101/59; PULSE 64; TEMP 97.7
[2018-08-26] MEDS: NICOTINE POLACRILEX 2 MG GUM BUC PRN (08:48)
[2018-08-26] MEDS: BUPRENORPHINE/NALOXONE 8 MG/2 MG FILM PACKET SL SCH (09:23)
[2018-08-26] MEDS: metroNIDAZOLE 250 MG TABLET PO SCH (09:24)
[2018-08-26] MEDS: PRENATAL VITAMINS W/ FOLIC ACID TABLET (FP) PO SCH (09:24)
[2018-08-26] MEDS: NICOTINE 21 MG/24 HOURS TOPICAL PATCH TD SCH (09:24)
[2018-08-26] MEDS: SULFAMETHOXAZOLE/TRIMETHOPRIM 800MG/160MG D.S. TABLET PO SCH (09:24)
--- NOTE | 2018-08-26 10:51 | PN ---
[facility] Progress Note Note: Psychiatry Attending's note : Called to enter script for seroquel. Patient scheduled for discharge today. Chart reviewed. Spoke to Ms Coelho. Via telephone. In the presence of referring nurse. Side effects/benefits discussed. Patient reports feeling well. Benign hospital course. Rehabilitation completed. Regular discharge. Seroquel 200 mg po hs tab # 30. Sent electronically to [facility].
--- NOTE | 2018-08-26 12:12 | PN ---
[facility] Progress Note (SOAP) Subjective: PT REQUESTED FOR EARLY DISCHARGE TODAY. ALERT O X 3. PT HAS MET WITH HER COUNSELOR AND HAS BEEN REFERRED TO [facility] ON , FOR CD AFTERCARE. PT REPORTS SHE HAS PRIMARY CARE WITH [facility] ON FOR MEDICAL MANAGEMENT. DENIES S/H/I. 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 Objective: 08/26/18 12:13 Vital Signs - 24 hr 08/26/18 08/26/18 08/26/18 00:30 03:30 07:11 Temperature 97.7 F Pulse Rate 64 Respiratory 17 18 18 Rate Blood Pressure 101/59 L Laboratory Tests 08/19/18 12:24 POC Urine HCG, Qual Negative Home Medications Medication Instructions Recorded Quetiapine Fumarate [Seroquel] 100 mg PO HS 08/20/18 Buprenorphine/Naloxone [Suboxone 1 each SL DAILY #7 packet MDD 1 08/26/18 8Mg/2Mg Sl Film -] Quetiapine Fumarate [Seroquel -] 200 mg PO HS #30 tab 08/26/18 Sulfamethoxazole/Trimethoprim 1 each PO BID #10 tablet 08/26/18 [Bactrim DS -] metroNIDAZOLE [Flagyl -] 250 mg PO BID #10 tablet 08/26/18 Assessment: 08/26/18 12:13 NAD MEDICALLY STABLE Plan: D/C PT TODAY. FOLLOW UP WITH CD AFTERCARE AND MEDICAL MANAGEMENT RECOMMENDED. FOLLOW UP AT [facility] FOR SUBOXONE-MAT. D/W PT TO COMPLETE ANTIBIOTIC THERAPY FOR UTI.
== END 2018-08-26 11:05 | disposition home or self-care (01) | DRG 895 ==
LOC: YASAS 10:04 → Y3E 14:01
PROVIDERS: ADMIT Neuromusculoskeletal Medicine & OMM; ATTEND Neuromusculoskeletal Medicine & OMM
PROC: HZ42ZZZ Group Counseling for Substance Abuse Treatment, Cognitive-Behavioral (ICD-10-PCS; principal; 2018-08-19)
DX: F11.23 Opioid dependence with withdrawal (principal); F14.20 Cocaine dependence, uncomplicated; F20.0 Paranoid schizophrenia; N39.0 Urinary tract infection, site not specified; F17.210 Nicotine dependence, cigarettes, uncomplicated; J45.909 Unspecified asthma, uncomplicated; Z88.1 Allergy status to other antibiotic agents; Z91.013 Allergy to seafood; Z59.0 Homelessness
CPT/HCPCS: 81025; 87086; 87186

== ENCOUNTER 2019-03-05 01:56 | Inpatient (IN) | payer OTHER ==
[2019-03-05 02:22] VITALS: BMI 22.4
--- NOTE | 2019-03-05 03:08 | HP ---
COWS - Scale Resting Pulse: 0= [place] 80 or Below Sweatin=Flushed/Facial Moisture Restless Observation: 3= Extraneous Movement Pupil Size: 1= Pupils >than Normal (Pupils = 3 mm) Bone or Joint Aches: 2= Severe Diffuse Aches Runny Nose/ Eye Tearin= Nasal Congestion GI Upset > 30mins: 1= Stomach Cramp Tremor Observation: 4= Gross Tremor/Twitching Yawning Observation: 0= None Anxiety or Irritability: 2=Irritable/Anxious Goose Flesh Skin: 0=Smooth Skin COWS Score: 16 CIWA Score - Admission Criteria OASAS Guidelines: Admission for Medically Managed Detox: Requires at least one of the followin. CIWA greater than 12 2. Seizures within the past 24 hours 3. Delirium tremens within the past 24 hours 4. Hallucinations within the past 24 hours 5. Acute intervention needed for co occurring medical disorder 6. Acute intervention needed for co occurring psychiatric disorder 7. Severe withdrawal that cannot be handled at a lower level of care (continued vomiting, continued diarrhea, abnormal vital signs) requiring intravenous medication and/or fluids 8. Admitting History and Physical - Past Medical History ...LMP: 03/05/17 - Smoking History Smoking history: Current every day smoker Have you smoked in the past 12 months: Yes Aproximately how many cigarettes per day: 20 - Alcohol/Substance Use Hx Alcohol Use: No Admission ROS BHS - HPI Chief Complaint: I'm trying to get off drugs. Allergies/Adverse Reactions: Allergies Allergy/AdvReac Type Severity Reaction Status Date / Time honey [Honey] Allergy Severe Swelling Verified 03/04/19 16:53 vancomycin HCl Allergy Intermediate Itching Verified 03/04/19 16:53 [From Vancocin] shellfish derived Allergy Difficulty Verified 03/04/19 16:53 Breathing History of Present Illness: 38 yo presents w/ opioid withdrawal symptoms seeking detox BRODY: 0.028 - patient denies drinking alcohol. UTox: + REID/FEN/MOP HCG: Neg Denies seizures, blackouts. Last OD -2 years ago. [facility]- states has not been there in 1 month. was on 100 mg Methadone PO. Need to verify that patient has been discharged. Opioid use began at age 16. Currently using 3 bags/day IV. Last used just before came in. Denies sharing needles or works. Does not have a Narcan kit at home. Alcohol use: Denies Cocaine use began at age 16. Currently using 3 bags/day. Injects and smokes. - Last used just before came in. Nicotine use began at age 16. Smokes 1 PPD. PMHx: Asthma (Last exacerbation years ago) EK12/18/17: Abn MHHx: "I'm told I'm paranoid schizophrenic - but I don't believe it" . Denies depression. Denies thoughts of harming self or others. SHx: Homeless. Unemployed. Denies legal issues. Patient Name: Ronel Coelho Date: 1980 Address: [address] [place] [address] Sex: Female Rx Written Rx Dispensed Drug Quantity Days Supply Prescriber Name 10/21/2018 10/21/2018 buprenorphine-naloxone 12-3 mg sl film 2 2 Susanna Gibson NP, PHD 10/15/2018 10/15/2018 buprenorphine-naloxone 12-3 mg sl film 7 7 Susanna Gibson NP, PHD 09/24/2018 09/24/2018 buprenorphine-naloxone 12-3 mg sl film 14 14 Sonja Auguste (MSN) 08/26/2018 08/26/2018 buprenorphine-naloxone 8-2 mg sl film 7 7 Carmel Clark NP Search Terms: Ronel Coelho, 1980 Search Date: 03/05/2019 03:07:41 AM States Searched: [place], [place], [place], [place], [place], [place] The Drug Utilization Report below displays the controlled substance prescriptions, if any, that were dispensed in the indicated state(s). The information displayed on this report is compiled from requests submitted to other states' PMPs, and accurately reflects the information as returned by them. Blank wiggins indicate data not provided by other state. This report was requested by: Deena Martin | Reference #: [id number] There are no results for the search terms that you entered. Exam Limitations: No Limitations - Ebola screening Have you traveled outside of the country in the last 21 days: No Have you had contact with anyone from an Ebola affected area: No Have you been sick,other than usual withdrawal symptoms: No Do you have a fever: No - Review of Systems Constitutional: Diaphoresis, Unintentional Wgt. Loss EENT: reports: Nose Congestion, Dental Problems (Cavities. No pain. Chews and swallows ok.) Respiratory: reports: No Symptoms reported Cardiac: reports: No Symptoms Reported GI: reports: Abdominal cramping, Other (Generalized abd tenderness.) : reports: No Symptoms Reported Musculoskeletal: reports: Back Pain Integumentary: reports: No Symptoms Reported Neuro: reports: Headache, Tremors Endocrine: reports: No Symptoms Reported Hematology: reports: No Symptoms Reported Psychiatric: reports: Judgement Intact, Orientated x3, Agitated, Anxious Patient History - Patient Medical History Hx Anemia: No Hx Asthma: No Hx Chronic Obstructive Pulmonary Disease (COPD): No Hx Cancer: No Hx Cardiac Disorders: No Hx Congestive Heart Failure: No Hx Hypertension: No Hx Hypercholesterolemia: No Hx Pacemaker: No HX Cerebrovascular Accident: No Hx Seizures: No Hx Dementia: No Hx Diabetes: Yes (borderline - diet controlled) Hx Gastrointestinal Disorders: No Hx Liver Disease: No Hx Genitourinary Disorders: Yes (frequent cystitis) Hx Sexually Transmitted Disorders: No Hx Renal Disease (ESRD): No Hx Thyroid Disease: No Hx Human Immunodeficiency Virus (HIV): No (07/26/18 NEGATIVE) Hx Hepatitis C: No Hx Depression: Yes (hospitalized August 2018 [facility]) Hx Suicide Attempt: Yes (in her 20s ) Hx Bipolar Disorder: No Hx Schizophrenia: Yes - Patient Surgical History Past Surgical History: Yes Hx Neurologic Surgery: No Hx Cataract Extraction: No Hx Cardiac Surgery: No Hx Lung Surgery: No Hx Breast Surgery: No Hx Breast Biopsy: No Hx Abdominal Surgery: No Hx Appendectomy: No Hx Cholecystectomy: No Hx Genitourinary Surgery: No Hx Section: Yes (x 19 years ago) Hx Orthopedic Surgery: No Hx Hysterectomy: No Anesthesia Reaction: No - PPD History Previous Implant?: Yes Documented Results: Negative w/proof Implanted On Prior [facility] Admission?: Yes Date: 07/05/18 Results: 1 PPD to be Administered?: No - Reproductive History Patient is a Female of Child Bearing Age (11 -55 yrs old): Yes Last Menstrual Period: 03/05/17 (unsure) Patient : No - Smoking Cessation Smoking history: Current every day smoker Have you smoked in the past 12 months: Yes Aproximately how many cigarettes per day: 20 Hx Chewing Tobacco Use: No Initiated information on smoking cessation: Yes 'Breaking Loose' booklet given: 03/05/19 - Substance & Tx. History Hx Alcohol Use: Yes (Never dependent) Hx Substance Use: Yes Substance Use Type: Cocaine, Heroin, Opiates Hx Substance Use Treatment: Yes (detox, rehab, Suboxone in past; [facility]MTP - left 1 month ago) - Substances abused Heroin Substance route: Inhalation Frequency: Daily Amount used: 1-2 bags Age of first use: 20 Date of last use: 10/14/18 Crack Substance route: Smoking Frequency: 3-6 times per week Amount used: 1 bag Age of first use: 16 Date of last use: 10/14/18 Admission Physical Exam BHS - Vital Signs Vital Signs: Vital Signs - 24 hr 03/05/19 02:18 Temperature 97.5 F L Pulse Rate 74 Respiratory 22 H Rate Blood Pressure 136/74 - Physical General Appearance: Yes: Nourished, Moderate Distress, Tremorous, Irritable, Sweating (Increased facial moisture), Anxious HEENTM: Yes: Within Normal Limits, EOMI, Hearing grossly Normal, Normocephalic, Normal Voice, ROMEO (Pupils = 3 mm), Pharynx Normal, Nasal Congestion, Other ( Thick whitish saliva, Dry mucous membranes) Respiratory: Yes: Lungs Clear (Pulse Ox = 97 %), Normal Breath Sounds, No Respiratory Distress Neck: Yes: No masses,lesions,Nodules, Supple Breast: Yes: Breast Exam Deferred Cardiology: Yes: Regular Rhythm, Regular Rate, S1, S2 Abdominal: Yes: Flat, Soft, Increased Bowel Sounds, Tenderness (Generalized abd tenderness. No rebound. 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 No: Other (Increased warmth and induration (L) upper arm area. Increased erythema and swelling both hands and fingers w/tenderness.) Lymphatic: Yes: Within Normal Limits - Diagnostic (1) Opioid dependence with withdrawal Current Visit: Yes Status: Acute (2) Cocaine dependence Current Visit: Yes Status: Chronic Qualifiers: Substance use status: uncomplicated Qualified Code(s): F14.20 - Cocaine dependence, uncomplicated Comment: counseled cessation - likely will need [facility] residential treatment (3) IVDU (intravenous drug user) Current Visit: Yes Status: Chronic (4) Nicotine dependence Current Visit: Yes Status: Chronic Qualifiers: Nicotine product type: cigarettes Substance use status: uncomplicated Qualified Code(s): F17.210 - Nicotine dependence, cigarettes, uncomplicated Comment: counseled cessation - willing to try gum - same Rx (5) History of asthma Current Visit: No Status: Chronic (6) Cellulitis Current Visit: Yes Status: Acute Qualifiers: Site of cellulitis: extremity Site of cellulitis of extremity: upper extremity Laterality: unspecified laterality Qualified Code(s): L03.119 - Cellulitis of unspecified part of limb Cleared for Admission S - Detox or Rehab [facility] Level of Care: Medically Managed Detox Regimen/Protocol: Methadone Claeared for Rehab Admission: No Breathalyzer - Breathalyzer Breathalyzer: 0.028 Urine Drug Screen - Test Device Lot number: [id number] Expiration date: 09/02/20 - Control Is test valid?: Yes - Results Drug screen NEGATIVE: No Urine drug screen results: REID-Cocaine, FEN-Fentanyl, MOP-Opiates Inpatient Rehab Admission - Rehab Decision to Admit Inpatient rehab admission?: No
[2019-03-05] MEDS ORDERED: ACETAMINOPHEN 325 MG TABLET (FP) PO PRN ×2 (04:04)
[2019-03-05] MEDS ORDERED: BISMUTH SUBSALICYLATE 524 MG/30 ML UD PO PRN (04:04)
[2019-03-05] MEDS ORDERED: cloNIDine HCL 0.1 MG TABLET PO PRN ×2 (04:04→12:20)
[2019-03-05] MEDS ORDERED: NICOTINE POLACRILEX 2 MG GUM BUC PRN (04:04)
[2019-03-05] MEDS ORDERED: MAGNESIUM HYDROX 2400MG/30ML ORAL SUSPENSION 30 ML CUP PO PRN (04:04)
[2019-03-05] MEDS ORDERED: MAGNESIUM CITRATE 300 ML BOTTLE PO PRN (04:04)
[2019-03-05] MEDS ORDERED: MAG HYDROX/AL HYDROX/SIMETH 30 ML UNIT-DOSE CUP PO PRN (04:04)
[2019-03-05] MEDS ORDERED: MELATONIN 5 MG TABLETS PO PRN (04:04)
[2019-03-05] MEDS ORDERED: IBUPROFEN 400 MG TABLET (FP) PO PRN (04:04)
[2019-03-05] MEDS ORDERED: METHADONE HCL 10 MG TABLET (FOR DETOX USE ONLY) PO ONE ×2 (04:04→10:00)
[2019-03-05] MEDS ORDERED: MENTHOL/PHENOL 1 EACH UD MM PRN (04:04)
[2019-03-05] MEDS ORDERED: METHADONE (DETOX) 10 MG, METHADONE (DETOX) 5 MG PO ONE (04:30)
[2019-03-05] MEDS ORDERED: METHADONE HCL 5 MG TABLET (FOR DETOX USE ONLY) ONE (05:39)
[2019-03-05] MEDS ORDERED: METHADONE HCL 10 MG TABLET (FOR DETOX USE ONLY) ONE (05:39)
[2019-03-05] MEDS: CEPHALEXIN MONOHYDRATE 500 MG CAPSULE (UD) PO SCH ×4 (07:00→23:26)
[2019-03-05 10:22] LABS: HEMATOCRIT 39.6 % (32.4-45.2); MCH 31.1 pg (25.7-33.7); MCHC 32.8 g/dl (32.0-36.0); MEAN PLT VOLUME 8.5 fl (7.5-11.1); PLATELET COUNT 294 K/MM3 (134-434); RBC 4.17 M/mm3 (3.60-5.2); RDW 14.3 % (11.6-15.6); WHITE BLOOD COUNT 13.7 K/mm3 (4.0-10.0)
[2019-03-05] MEDS: NICOTINE 14 MG/24 HOURS TOPICAL PATCH TD SCH (10:24)
[2019-03-05] MEDS: PRENATAL VITAMINS W/ FOLIC ACID TABLET (FP) PO SCH (10:24)
[2019-03-05 10:42] LABS: ALBUMIN 3.1 g/dl (3.4-5.0); BILIRUBIN,TOTAL 0.4 mg/dL (0.2-1); CALCIUM 8.2 mg/dL (8.5-10.1); CREATININE 0.7 mg/dL (0.55-1.3); TOT PROT 6.4 g/dl (6.4-8.2)
--- NOTE | 2019-03-05 12:21 | PN ---
BHS COWS - Scale Resting Pulse: 1= [place] 81-100 Sweatin= Chills/Flushing Restless Observation: 0= Sits Still Pupil Size: 1= Pupils >than Normal Bone or Joint Aches: 2= Severe Diffuse Aches Runny Nose/ Eye Tearin= Nasal Congestion GI Upset > 30mins: 1= Stomach Cramp Tremor Observation of Outstretched Hands: 2= Slight Tremor Visible Yawning Observation: 1= 1-2x During Session Anxiety or Irritability: 2=Irritable/Anxious Goose Flesh Skin: 3=Piloerection COWS Score: 15 BHS Progress Note (SOAP) Subjective: 38 years old female admitted on 03/05/19 for opiate withdrawal sx management treated with methadone detox regimen feeling tired resting on bed limited conversation with staff prefers to stay in bed today Objective: 03/05/19 12:24 Vital Signs Temperature 99.1 F 03/05/19 09:34 Pulse Rate 84 03/05/19 09:34 Respiratory Rate 18 03/05/19 09:34 Blood Pressure 155/101 H 03/05/19 09:34 O2 Sat by Pulse Oximetry (%) Laboratory Last Values WBC 13.7 K/mm3 (4.0-10.0) H 03/05/19 07:40 RBC 4.17 M/mm3 (3.60-5.2) 03/05/19 07:40 Hgb 13.0 GM/dL (10.7-15.3) 03/05/19 07:40 Hct 39.6 % (32.4-45.2) 03/05/19 07:40 MCV 95.0 fl (80-96) 03/05/19 07:40 MCH 31.1 pg (25.7-33.7) 03/05/19 07:40 MCHC 32.8 g/dl (32.0-36.0) 03/05/19 07:40 RDW 14.3 % (11.6-15.6) 03/05/19 07:40 Plt Count 294 K/MM3 (134-434) 03/05/19 07:40 MPV 8.5 fl (7.5-11.1) 03/05/19 07:40 Sodium 139 mmol/L (136-145) 03/05/19 07:40 Potassium 4.0 mmol/L (3.5-5.1) 03/05/19 07:40 Chloride 106 mmol/L (98-107) 03/05/19 07:40 Carbon Dioxide 28 mmol/L (21-32) 03/05/19 07:40 Anion Gap 5 MMOL/L (8-16) L 03/05/19 07:40 BUN 11.0 mg/dL (7-18) 03/05/19 07:40 Creatinine 0.7 mg/dL (0.55-1.3) 03/05/19 07:40 Est GFR (CKD-EPI)AfAm 127.39 03/05/19 07:40 Est GFR (CKD-EPI)NonAf 109.91 03/05/19 07:40 Random Glucose 118 mg/dL (74-106) H 03/05/19 07:40 Calcium 8.2 mg/dL (8.5-10.1) L 03/05/19 07:40 Total Bilirubin 0.4 mg/dL (0.2-1) 03/05/19 07:40 AST 25 U/L (15-37) 03/05/19 07:40 ALT 28 U/L (13-61) 03/05/19 07:40 Alkaline Phosphatase 89 U/L (45-117) 03/05/19 07:40 Total Protein 6.4 g/dl (6.4-8.2) 03/05/19 07:40 Albumin 3.1 g/dl (3.4-5.0) L 03/05/19 07:40 RPR Titer Nonreactive (NONREACTIVE) 03/05/19 07:40 lab noted soft tissue infection related to IV heroin of both hands 03/05/19 12:26 Assessment: 03/05/19 12:28 opiate withdrawal Plan: methadone regimen
--- NOTE | 2019-03-05 16:08 | CONSULT ---
[facility] Psychiatric Consult - Data Date of interview: 03/05/19 Admission source: [facility] Identifying data: Composition [employer] Applier approached patient for psychiatric consultation. Patient appeared fatigue and lethagic. Patient stated to junior technical writer, " I am tired. We can talk another time." Please reorder psychiatric reconsultation if requested by patient.
--- NOTE | 2019-03-05 17:44 | EKG ---
Test Reason : Blood Pressure : / mmHG Vent. Rate : 067 BPM Atrial Rate : 067 BPM P-R Int : 122 ms QRS Dur : 086 ms QT Int : 416 ms P-R-T Axes : 047 067 050 degrees QTc Int : 439 ms NORMAL SINUS RHYTHM WITH SINUS ARRHYTHMIA NORMAL ECG WHEN COMPARED WITH ECG OF 05-MAR-2019 03:54, NO SIGNIFICANT CHANGE WAS FOUND Confirmed by LEW ESCOBAR MD ([id number]) on 03/05/2019 5:44:33 PM Referred By: GEORGE DC Confirmed By:LEW ESCOBAR MD
--- NOTE | 2019-03-05 17:45 | EKG ---
Test Reason : Blood Pressure : / mmHG Vent. Rate : 075 BPM Atrial Rate : 075 BPM P-R Int : 096 ms QRS Dur : 084 ms QT Int : 404 ms P-R-T Axes : -10 072 057 degrees QTc Int : 451 ms SINUS RHYTHM WITH SHORT MS OTHERWISE NORMAL ECG WHEN COMPARED WITH ECG OF 18-DEC-2017 15:16, ST NO LONGER DEPRESSED IN INFERIOR LEADS T WAVE INVERSION NO LONGER EVIDENT IN INFERIOR LEADS CLINICAL CORRELATION IS RECOMMENDED BASELINE ARTIFACT Confirmed by LEW ESCOBAR MD ([id number]) on 03/05/2019 5:45:04 PM Referred By: Confirmed By:LEW ESCOBAR MD
[2019-03-05] MEDS: THIAMINE HCL 100 MG TABLET (FP) PO SCH (22:14)
[2019-03-06] MEDS: CEPHALEXIN MONOHYDRATE 500 MG CAPSULE (UD) PO SCH ×4 (05:48→23:47)
[2019-03-06] MEDS: clonazePAM 0.5 MG TABLET PO PRN (09:30)
[2019-03-06] MEDS: NICOTINE 14 MG/24 HOURS TOPICAL PATCH TD SCH (09:30)
[2019-03-06] MEDS: PRENATAL VITAMINS W/ FOLIC ACID TABLET (FP) PO SCH (09:30)
[2019-03-06] MEDS ORDERED: METHADONE HCL 5 MG TABLET (FOR DETOX USE ONLY) PO ONE (10:00)
[2019-03-06] MEDS ORDERED: ONDANSETRON *ODT* 4 MG TABLET SL ONE (11:16)
--- NOTE | 2019-03-06 11:22 | PN ---
[facility] COWS - Scale Resting Pulse: 0= [place] 80 or Below Sweatin= Chills/Flushing Restless Observation: 0= Sits Still Pupil Size: 1= Pupils >than Normal Bone or Joint Aches: 2= Severe Diffuse Aches Runny Nose/ Eye Tearin= Nasal Congestion GI Upset > 30mins: 2= Nausea/Diarrhea Tremor Observation of Outstretched Hands: 1= Tremor [place], Not Seen Yawning Observation: 2= >3x During Session Anxiety or Irritability: 2=Irritable/Anxious Goose Flesh Skin: 0=Smooth Skin COWS Score: 12 S Progress Note (SOAP) Subjective: 38 years old female admitted on 03/05/19 for opiate withdrawal sx management treating with methadone detox regimen feeling nausea zofran 4mg sl x 1 ambulating from bed to bathroom steady gait speech clearly good eye contact discuss aftercare with staff considering to go to [facility] methadone program Objective: 03/06/19 11:25 Vital Signs Temperature 98.8 F 03/06/19 09:25 Pulse Rate 79 03/06/19 09:25 Respiratory Rate 18 03/06/19 09:25 Blood Pressure 140/81 03/06/19 09:25 O2 Sat by Pulse Oximetry (%) Laboratory Last Values WBC 13.7 K/mm3 (4.0-10.0) H 03/05/19 07:40 RBC 4.17 M/mm3 (3.60-5.2) 03/05/19 07:40 Hgb 13.0 GM/dL (10.7-15.3) 03/05/19 07:40 Hct 39.6 % (32.4-45.2) 03/05/19 07:40 MCV 95.0 fl (80-96) 03/05/19 07:40 MCH 31.1 pg (25.7-33.7) 03/05/19 07:40 MCHC 32.8 g/dl (32.0-36.0) 03/05/19 07:40 RDW 14.3 % (11.6-15.6) 03/05/19 07:40 Plt Count 294 K/MM3 (134-434) 03/05/19 07:40 MPV 8.5 fl (7.5-11.1) 03/05/19 07:40 Sodium 139 mmol/L (136-145) 03/05/19 07:40 Potassium 4.0 mmol/L (3.5-5.1) 03/05/19 07:40 Chloride 106 mmol/L (98-107) 03/05/19 07:40 Carbon Dioxide 28 mmol/L (21-32) 03/05/19 07:40 Anion Gap 5 MMOL/L (8-16) L 03/05/19 07:40 BUN 11.0 mg/dL (7-18) 03/05/19 07:40 Creatinine 0.7 mg/dL (0.55-1.3) 03/05/19 07:40 Est GFR (CKD-EPI)AfAm 127.39 03/05/19 07:40 Est GFR (CKD-EPI)NonAf 109.91 03/05/19 07:40 Random Glucose 118 mg/dL (74-106) H 03/05/19 07:40 Calcium 8.2 mg/dL (8.5-10.1) L 03/05/19 07:40 Total Bilirubin 0.4 mg/dL (0.2-1) 03/05/19 07:40 AST 25 U/L (15-37) 03/05/19 07:40 ALT 28 U/L (13-61) 03/05/19 07:40 Alkaline Phosphatase 89 U/L (45-117) 03/05/19 07:40 Total Protein 6.4 g/dl (6.4-8.2) 03/05/19 07:40 Albumin 3.1 g/dl (3.4-5.0) L 03/05/19 07:40 RPR Titer Nonreactive (NONREACTIVE) 03/05/19 07:40 lab noted continue cephalosporin Assessment: 03/06/19 11:25 opiate withdrawal Plan: methadone regimen received nurse verified methadone 40mg po daily last dose 02/13/19 Istop indicates that suboxone 12-3mg sl daily last filled 10/2018 admission urine tox revealed negative methadone negative suboxone
[2019-03-06] MEDS: THIAMINE HCL 100 MG TABLET (FP) PO SCH (22:40)
[2019-03-07] MEDS: CEPHALEXIN MONOHYDRATE 500 MG CAPSULE (UD) PO SCH (06:13)
[2019-03-07] MEDS: clonazePAM 0.5 MG TABLET PO PRN (06:13)
[2019-03-07 09:17] VITALS: BP 149/89; PULSE 84; TEMP 97.3
[2019-03-07] MEDS: PRENATAL VITAMINS W/ FOLIC ACID TABLET (FP) PO SCH (09:58)
[2019-03-07] MEDS: NICOTINE 14 MG/24 HOURS TOPICAL PATCH TD SCH (09:58)
[2019-03-07] MEDS ORDERED: METHADONE HCL 10 MG TABLET (FOR DETOX USE ONLY) PO ONE (10:00)
--- NOTE | 2019-03-07 12:07 | DS ---
[facility] Detox Discharge Summary Admission Date: 03/05/19 Discharge Date: 03/07/19 (Pt left AMA) - History Present History: Cocaine Dependence, Opioid Dependence Additional Comments: Pt left AMA, pt did not complete the detox protocol. Pt did not wait to talk to the provide. As per RN pt refused to wait for the provider to talk to her. Pt is on keflex 500mg po Q6hrs x7days for upper extremity cellulitis. Pt has 5days left to complete abt. Prescription sent to [facility], pt's preferred pharmacy on file. Pertinent Past History: h/o cocaine and heroin use disorder. - Physical Exam Results Vital Signs: Vital Signs Temperature 97.3 F L 03/07/19 09:16 Pulse Rate 84 03/07/19 09:16 Respiratory Rate 18 03/07/19 09:16 Blood Pressure 149/89 03/07/19 09:16 O2 Sat by Pulse Oximetry (%) Vital Signs 03/07/19 03/07/19 06:35 09:16 Temperature 97.4 F L 97.3 F L Pulse Rate 104 H 84 Respiratory 18 18 Rate Blood Pressure 138/98 149/89 Laboratory Last Values WBC 13.7 K/mm3 (4.0-10.0) H 03/05/19 07:40 RBC 4.17 M/mm3 (3.60-5.2) 03/05/19 07:40 Hgb 13.0 GM/dL (10.7-15.3) 03/05/19 07:40 Hct 39.6 % (32.4-45.2) 03/05/19 07:40 MCV 95.0 fl (80-96) 03/05/19 07:40 MCH 31.1 pg (25.7-33.7) 03/05/19 07:40 MCHC 32.8 g/dl (32.0-36.0) 03/05/19 07:40 RDW 14.3 % (11.6-15.6) 03/05/19 07:40 Plt Count 294 K/MM3 (134-434) 03/05/19 07:40 MPV 8.5 fl (7.5-11.1) 03/05/19 07:40 Sodium 139 mmol/L (136-145) 03/05/19 07:40 Potassium 4.0 mmol/L (3.5-5.1) 03/05/19 07:40 Chloride 106 mmol/L (98-107) 03/05/19 07:40 Carbon Dioxide 28 mmol/L (21-32) 03/05/19 07:40 Anion Gap 5 MMOL/L (8-16) L 03/05/19 07:40 BUN 11.0 mg/dL (7-18) 03/05/19 07:40 Creatinine 0.7 mg/dL (0.55-1.3) 03/05/19 07:40 Est GFR (CKD-EPI)AfAm 127.39 03/05/19 07:40 Est GFR (CKD-EPI)NonAf 109.91 03/05/19 07:40 Random Glucose 118 mg/dL (74-106) H 03/05/19 07:40 Calcium 8.2 mg/dL (8.5-10.1) L 03/05/19 07:40 Total Bilirubin 0.4 mg/dL (0.2-1) 03/05/19 07:40 AST 25 U/L (15-37) 03/05/19 07:40 ALT 28 U/L (13-61) 03/05/19 07:40 Alkaline Phosphatase 89 U/L (45-117) 03/05/19 07:40 Total Protein 6.4 g/dl (6.4-8.2) 03/05/19 07:40 Albumin 3.1 g/dl (3.4-5.0) L 03/05/19 07:40 RPR Titer Nonreactive (NONREACTIVE) 03/05/19 07:40 Labs noted. Pertinent Admission Physical Exam Findings: Withdrawal symptoms. - Treatment Hospital Course: Detox Protocol Followed - Medication Discharge Medications: Ambulatory Orders Quetiapine Fumarate [Seroquel -] 200 mg PO HS #30 tab 08/26/18 Nicotine Polacrilex [Nicotine Gum] 4 mg BC Q2H PRN #1 box 10/15/18 Olanzapine [Zyprexa -] 10 mg PO DAILY 10/15/18 Polyethylene Glycol 3350 [Miralax (For Bowel Prep) -] 17 gm PO DAILY #1 bottle 10/15/18 traZODone HCL [Trazodone HCl] 100 mg PO HS 10/15/18 Buprenorphine/Naloxone HCl [Suboxone 12 mg-3 mg Sl Film] 1 each SL DAILY #2 packet MDD 1 10/21/18 Naloxone HCl [Narcan] 4 mg NS ASDIR PRN #1 spray 03/06/19 Cephalexin [Keflex] 500 mg PO Q6H 5 Days #20 capsule 03/07/19 - Diagnosis (1) Cellulitis Status: Acute Qualifiers: Site of cellulitis: extremity Site of cellulitis of extremity: upper extremity Laterality: unspecified laterality Qualified Code(s): L03.119 - Cellulitis of unspecified part of limb (2) Opioid dependence with withdrawal Status: Acute (3) Cocaine dependence Status: Chronic Qualifiers: Substance use status: uncomplicated Qualified Code(s): F14.20 - Cocaine dependence, uncomplicated (4) IVDU (intravenous drug user) Status: Chronic (5) Nicotine dependence Status: Chronic Qualifiers: Nicotine product type: cigarettes Substance use status: uncomplicated Qualified Code(s): F17.210 - Nicotine dependence, cigarettes, uncomplicated (6) Asthma Status: Chronic Qualifiers: Asthma severity: mild Asthma persistence: unspecified Asthma complication type: unspecified Qualified Code(s): J45.909 - Unspecified asthma , uncomplicated (7) Seizure Status: Suspected Qualifiers: Convulsion type: unspecified Qualified Code(s): R56.9 - Unspecified convulsions - AMA Did Patient Leave Against Medical Advice: Yes
[2019-03-08] MEDS ORDERED: METHADONE HCL 5 MG TABLET (FOR DETOX USE ONLY) PO ONE (06:00)
== END 2019-03-07 10:38 | disposition left against medical advice (07) | DRG 894 ==
LOC: YASAS 01:56 → Y3N 03:48
PROVIDERS: ADMIT Allergy & Immunology; ATTEND Allergy & Immunology
PROC: HZ2ZZZZ Detoxification Services for Substance Abuse Treatment (ICD-10-PCS; principal; 2019-03-05)
DX: F11.23 Opioid dependence with withdrawal (principal); F14.20 Cocaine dependence, uncomplicated; L03.119 Cellulitis of unspecified part of limb; F17.210 Nicotine dependence, cigarettes, uncomplicated; J45.909 Unspecified asthma, uncomplicated; R73.03 Prediabetes; Z88.1 Allergy status to other antibiotic agents; Z91.013 Allergy to seafood; Z91.018 Allergy to other foods; Z86.69 Personal history of other diseases of the nervous system and sense organs; Z91.5 Personal history of self-harm; Z56.0 Unemployment, unspecified; Z59.0 Homelessness
CPT/HCPCS: 36415; 80053; 85027; 86593; 93005; 93010; J0735

== ENCOUNTER 2021-02-16 00:05 | Emergency (ER) | payer OTHER ==
[2021-02-16 01:28] VITALS: BP 143/87; PULSE 81; TEMP 97.5; BMI 23.3
== END 2021-02-16 03:48 | disposition left against medical advice (07) ==
LOC: JER 00:05
DX: L08.9 Local infection of the skin and subcutaneous tissue, unspecified (principal)
CPT/HCPCS: 99281-25

== ENCOUNTER 2021-09-15 13:22 | Inpatient (IN) | payer OTHER ==
[2021-09-15] MEDS ORDERED: MAGNESIUM HYDROX 2400MG/30ML ORAL SUSPENSION 30 ML CUP PO PRN (14:18)
[2021-09-15] MEDS ORDERED: NICOTINE 10 MG CARTRIDGE (INHALER) IH PRN (14:18)
[2021-09-15] MEDS ORDERED: NALOXONE HCL (KLOXXADO) 8 MG SPRAY NS PRN (14:18)
[2021-09-15] MEDS ORDERED: IBUPROFEN 400 MG TABLET (FP) PO PRN (14:18)
[2021-09-15] MEDS ORDERED: BENZOCAINE/MENTHOL (CHLORASEPTIC ) LOZENGE MM PRN (14:18)
[2021-09-15] MEDS ORDERED: IBUPROFEN 600 MG TABLET (FP) PO PRN (14:18)
[2021-09-15] MEDS ORDERED: BISMUTH SUBSALICYLATE 262 MG/15 ML BTL PO PRN (14:18)
[2021-09-15] MEDS ORDERED: cloNIDine HCL 0.1 MG TABLET PO ONE (14:18)
[2021-09-15] MEDS ORDERED: METHOCARBAMOL 500 MG TABLET PO PRN (14:18)
[2021-09-15] MEDS ORDERED: BUPRENORPHINE HCL 150 MCG, BUPRENORPHINE HCL 75 MCG BC PRN (14:18)
[2021-09-15] MEDS ORDERED: diazePAM 5 MG TABLET PO PRN (14:18)
[2021-09-15] MEDS ORDERED: BUPRENORPHINE HCL 150 MCG, BUPRENORPHINE HCL 75 MCG BC ONE (14:18)
[2021-09-15] MEDS ORDERED: MAG HYDROX/AL HYDROX/SIMETH 30 ML UNIT-DOSE CUP PO PRN (14:18)
[2021-09-15] MEDS ORDERED: LOPERAMIDE HCL 2 MG CAPSULE PO PRN (14:18)
[2021-09-15] MEDS ORDERED: DICYCLOMINE HCL 10 MG CAPSULE PO PRN (14:18)
[2021-09-15] MEDS ORDERED: ACETAMINOPHEN 325 MG TABLET (FP) PO PRN ×2 (14:18)
[2021-09-15] MEDS ORDERED: ONDANSETRON *ODT* 4 MG TABLET SL PRN (14:18)
[2021-09-15] MEDS ORDERED: MAGNESIUM CITRATE 300 ML BOTTLE PO PRN (14:18)
[2021-09-15] MEDS ORDERED: BUPRENORPHINE HCL 150 MCG FILM BC ONE (15:24)
[2021-09-15] MEDS ORDERED: BUPRENORPHINE HCL 75 MCG FILM BC ONE (15:24)
[2021-09-15] MEDS: PRENATAL VITAMINS W/ FOLIC ACID TABLET (FP) PO SCH (16:04)
[2021-09-15] MEDS: NICOTINE 14 MG/24 HOURS TOPICAL PATCH TD SCH (16:04)
[2021-09-15] MEDS ORDERED: cloNIDine HCL 0.1 MG TABLET PO PRN (18:18)
[2021-09-15] MEDS: hydrOXYzine PAMOATE 25 MG CAPSULE (FP) PO SCH ×2 (18:28→22:36)
[2021-09-15] MEDS ORDERED: MELATONIN 5 MG TABLETS PO SCH (22:00)
[2021-09-15] MEDS ORDERED: THIAMINE HCL 100 MG TABLET (FP) PO SCH (22:00)
[2021-09-16] MEDS ORDERED: BUPRENORPHINE HCL 150 MCG, BUPRENORPHINE HCL 75 MCG BC PRN
[2021-09-16] MEDS ORDERED: BUPRENORPHINE HCL 75 MCG FILM BC ONE ×2 (04:53→12:54)
[2021-09-16] MEDS ORDERED: BUPRENORPHINE HCL 150 MCG FILM BC ONE ×2 (04:53→12:53)
[2021-09-16] MEDS: hydrOXYzine PAMOATE 25 MG CAPSULE (FP) PO SCH ×2 (05:42→10:38)
[2021-09-16] MEDS ORDERED: BUPRENORPHINE HCL 150 MCG, BUPRENORPHINE HCL 75 MCG BC SCH (06:00)
[2021-09-16] MEDS: PRENATAL VITAMINS W/ FOLIC ACID TABLET (FP) PO SCH (10:35)
[2021-09-16] MEDS: NICOTINE 14 MG/24 HOURS TOPICAL PATCH TD SCH (10:35)
[2021-09-16 10:48] VITALS: BP 137/60; PULSE 51; TEMP 97.5
[2021-09-16 12:59] LABS: HEMATOCRIT 47.2 % (32.4-45.2); HEMOGLOBIN 15.7 GM/dL (10.7-15.3); MCH 32.5 pg (25.7-33.7); MCHC 33.2 g/dl (32.0-36.0); MEAN PLT VOLUME 9.2 fl (7.5-11.1); PLATELET COUNT 231 10^3/uL (134-434); RBC 4.82 M/mm3 (3.60-5.2); RDW 13.8 % (11.6-15.6); WHITE BLOOD COUNT 8.5 K/mm3 (4.0-10.0)
[2021-09-16 13:26] LABS: ALBUMIN 3.5 g/dl (3.4-5.0); CALCIUM 8.9 mg/dL (8.5-10.1)
[2021-09-16 13:29] LABS: CREATININE 0.7 mg/dL (0.55-1.3)
[2021-09-16 13:31] LABS: BILIRUBIN,TOTAL 0.6 mg/dL (0.2-1); TOT PROT 7.3 g/dl (6.4-8.2)
[2021-09-17] MEDS ORDERED: BUPRENORPHINE HCL 450 MCG FILM BC SCH (06:00)
[2021-09-18] MEDS ORDERED: BUPRENORPHINE/NALOXONE 4 MG/1 MG FILM PACKET SL SCH (06:00)
[2021-09-19] MEDS ORDERED: BUPRENORPHINE/NALOXONE 8 MG/2 MG FILM PACKET SL ONE (06:00)
== END 2021-09-16 13:25 | disposition left against medical advice (07) | DRG 894 ==
LOC: YASAS 13:22 → Y6N 15:19
PROVIDERS: ADMIT Allergy & Immunology; ATTEND Surgery
PROC: HZ2ZZZZ Detoxification Services for Substance Abuse Treatment (ICD-10-PCS; principal; 2021-09-15)
DX: F11.23 Opioid dependence with withdrawal (principal); F14.20 Cocaine dependence, uncomplicated; F20.0 Paranoid schizophrenia; F17.210 Nicotine dependence, cigarettes, uncomplicated; F19.24 Other psychoactive substance dependence with psychoactive substance-induced mood disorder; F43.10 Post-traumatic stress disorder, unspecified; J45.909 Unspecified asthma, uncomplicated; B18.2 Chronic viral hepatitis C; E11.9 Type 2 diabetes mellitus without complications; Z62.810 Personal history of physical and sexual abuse in childhood; Z91.410 Personal history of adult physical and sexual abuse; Z87.440 Personal history of urinary (tract) infections; Z56.0 Unemployment, unspecified; Z59.00 Homelessness unspecified; Z88.1 Allergy status to other antibiotic agents; Z91.013 Allergy to seafood
CPT/HCPCS: 36415; 80053; 81025; 85027; 86780; 93005; 93010; J0735

== ENCOUNTER 2021-11-13 11:21 | Inpatient (IN) | payer OTHER ==
[2021-11-13 14:28] VITALS: BMI 22.3
[2021-11-13] MEDS ORDERED: ACETAMINOPHEN 325 MG TABLET (FP) PO PRN ×2 (15:04)
[2021-11-13] MEDS ORDERED: MAGNESIUM CITRATE 300 ML BOTTLE PO PRN (15:04)
[2021-11-13] MEDS ORDERED: DICYCLOMINE HCL 10 MG CAPSULE PO PRN (15:04)
[2021-11-13] MEDS ORDERED: MAG HYDROX/AL HYDROX/SIMETH 30 ML UNIT-DOSE CUP PO PRN (15:04)
[2021-11-13] MEDS ORDERED: METHOCARBAMOL 500 MG TABLET PO PRN (15:04)
[2021-11-13] MEDS ORDERED: IBUPROFEN 400 MG TABLET (FP) PO PRN (15:04)
[2021-11-13] MEDS ORDERED: NICOTINE 10 MG CARTRIDGE (INHALER) IH PRN (15:04)
[2021-11-13] MEDS ORDERED: BENZOCAINE/MENTHOL (CHLORASEPTIC ) LOZENGE MM PRN (15:04)
[2021-11-13] MEDS ORDERED: NALOXONE HCL (KLOXXADO) 8 MG SPRAY NS PRN (15:04)
[2021-11-13] MEDS ORDERED: BISMUTH SUBSALICYLATE 524 MG/30 ML PO PRN (15:04)
[2021-11-13] MEDS ORDERED: MAGNESIUM HYDROX 2400MG/30ML ORAL SUSPENSION 30 ML CUP PO PRN (15:04)
[2021-11-13] MEDS ORDERED: IBUPROFEN 600 MG TABLET (FP) PO PRN (15:04)
[2021-11-13] MEDS ORDERED: ONDANSETRON *ODT* 4 MG TABLET SL PRN (15:04)
[2021-11-13] MEDS ORDERED: LOPERAMIDE HCL 2 MG CAPSULE PO PRN (15:04)
[2021-11-13] MEDS ORDERED: cloNIDine HCL 0.1 MG TABLET PO PRN (15:04)
[2021-11-13] MEDS ORDERED: diazePAM 5 MG TABLET PO PRN (15:12)
[2021-11-13] MEDS: NICOTINE 21 MG/24 HOURS TOPICAL PATCH TD SCH (17:03)
[2021-11-13] MEDS ORDERED: methaDONE HCL 10 MG TABLET (FOR DETOX USE ONLY) PO ONE (17:04)
[2021-11-13] MEDS: hydrOXYzine PAMOATE 25 MG CAPSULE (FP) PO SCH ×2 (23:47→23:49)
[2021-11-13] MEDS: THIAMINE HCL 100 MG TABLET (FP) PO SCH (23:48)
[2021-11-13] MEDS: MELATONIN 5 MG TABLETS PO SCH (23:48)
[2021-11-14] MEDS: hydrOXYzine PAMOATE 25 MG CAPSULE (FP) PO SCH ×4 (06:19→18:28)
[2021-11-14] MEDS: PRENATAL VITAMINS W/ FOLIC ACID TABLET (FP) PO SCH (10:38)
[2021-11-14] MEDS: NICOTINE 21 MG/24 HOURS TOPICAL PATCH TD SCH (10:40)
[2021-11-15] MEDS: MELATONIN 5 MG TABLETS PO SCH (00:20)
[2021-11-15] MEDS: THIAMINE HCL 100 MG TABLET (FP) PO SCH (00:20)
[2021-11-15] MEDS: hydrOXYzine PAMOATE 25 MG CAPSULE (FP) PO SCH ×4 (00:20→15:32)
[2021-11-15] MEDS: PRENATAL VITAMINS W/ FOLIC ACID TABLET (FP) PO SCH (09:06)
[2021-11-15] MEDS: NICOTINE 21 MG/24 HOURS TOPICAL PATCH TD SCH (09:08)
[2021-11-15] MEDS ORDERED: methaDONE HCL 10 MG TABLET (FOR DETOX USE ONLY) PO ONE (10:00)
[2021-11-15 11:28] LABS: HEMATOCRIT 45.4 % (32.4-45.2); MCH 31.8 pg (25.7-33.7); MCHC 33.1 g/dl (32.0-36.0); MEAN CELL VOLUME 96.3 fl (80-96); MEAN PLT VOLUME 8.7 fl (7.5-11.1); PLATELET COUNT 271 10^3/uL (134-434); RBC 4.72 M/mm3 (3.60-5.2); RDW 14.1 % (11.6-15.6); WHITE BLOOD COUNT 8.5 K/mm3 (4.0-10.0)
[2021-11-15 12:23] LABS: CALCIUM 8.9 mg/dL (8.5-10.1)
[2021-11-15 12:24] LABS: ALBUMIN 3.3 g/dl (3.4-5.0); BLOOD UREA NITROGEN 12.8 mg/dL (7-18)
[2021-11-15 12:27] LABS: CREATININE 0.7 mg/dL (0.55-1.3)
[2021-11-15 12:29] LABS: BILIRUBIN,TOTAL 0.4 mg/dL (0.2-1); TOT PROT 7.2 g/dl (6.4-8.2)
[2021-11-15 12:32] LABS: HIV INTERPRETATION NEGATIVE (NEGATIVE)
[2021-11-15 12:55] VITALS: BP 134/70; PULSE 65; RESP 18; TEMP 96.9
[2021-11-17] MEDS ORDERED: methaDONE HCL 10 MG TABLET (FOR DETOX USE ONLY) PO ONE (10:00)
== END 2021-11-15 15:41 | disposition left against medical advice (07) | DRG 894 ==
LOC: YASAS 11:21 → Y6N 15:40
PROVIDERS: ADMIT Allergy & Immunology; ATTEND Surgery
PROC: HZ2ZZZZ Detoxification Services for Substance Abuse Treatment (ICD-10-PCS; principal; 2021-11-13)
DX: F11.23 Opioid dependence with withdrawal (principal); F14.20 Cocaine dependence, uncomplicated; F20.0 Paranoid schizophrenia; F17.210 Nicotine dependence, cigarettes, uncomplicated; F31.9 Bipolar disorder, unspecified; F43.10 Post-traumatic stress disorder, unspecified; F19.24 Other psychoactive substance dependence with psychoactive substance-induced mood disorder; G47.00 Insomnia, unspecified; J45.909 Unspecified asthma, uncomplicated; Z86.19 Personal history of other infectious and parasitic diseases; Z28.311 Partially vaccinated for COVID-19; Z88.1 Allergy status to other antibiotic agents; Z91.013 Allergy to seafood
CPT/HCPCS: 36415; 80053; 81025; 82962; 85027; 86780; 87389; 87811; C9803-CS; U0003; U0005

== ENCOUNTER 2023-04-08 14:21 | Inpatient (IN) | payer OTHER ==
[2023-04-08 14:55] VITALS: BMI 21.2
[2023-04-08] MEDS ORDERED: BENZOCAINE/MENTHOL (CHLORASEPTIC ) LOZENGE MM PRN (15:28)
[2023-04-08] MEDS ORDERED: METHOCARBAMOL 500 MG TABLET PO PRN (15:28)
[2023-04-08] MEDS ORDERED: NALOXONE HCL 0.4 MG/ML VIAL IM PRN (15:28)
[2023-04-08] MEDS ORDERED: NICOTINE POLACRILEX 2 MG GUM BUC PRN (15:28)
[2023-04-08] MEDS ORDERED: DICYCLOMINE HCL 10 MG CAPSULE PO PRN (15:28)
[2023-04-08] MEDS ORDERED: LOPERAMIDE HCL 2 MG CAPSULE PO PRN (15:28)
[2023-04-08] MEDS ORDERED: ACETAMINOPHEN 325 MG TABLET (FP) PO PRN (15:28)
[2023-04-08] MEDS ORDERED: POLYETHYLENE GLYCOL (HEALTHYLAX) 3350 17 GM PACKET PO PRN (15:28)
[2023-04-08] MEDS ORDERED: hydrOXYzine PAMOATE 25 MG CAPSULE (FP) PO PRN (15:28)
[2023-04-08] MEDS ORDERED: NALOXONE HCL (KLOXXADO) 8 MG SPRAY NS PRN (15:28)
[2023-04-08] MEDS ORDERED: BENZONATATE 200 MG CAPSULE PO PRN (15:28)
[2023-04-08] MEDS ORDERED: IBUPROFEN 600 MG TABLET (FP) PO PRN (15:28)
[2023-04-08] MEDS ORDERED: ONDANSETRON *ODT* 4 MG TABLET SL PRN (15:28)
[2023-04-08] MEDS ORDERED: MAG HYDROX/AL HYDROX/SIMETH 30 ML UNIT-DOSE CUP PO PRN (15:28)
[2023-04-08] MEDS ORDERED: IBUPROFEN 400 MG TABLET (FP) PO PRN (15:28)
[2023-04-08] MEDS ORDERED: BISMUTH SUBSALICYLATE 524 MG/30 ML PO PRN (15:28)
[2023-04-08] MEDS ORDERED: MAGNESIUM HYDROX 2400MG/30ML ORAL SUSPENSION 30 ML CUP PO PRN (15:28)
[2023-04-08] MEDS ORDERED: guaiFENesin 600 MG TABLET.ER (FP) PO PRN (15:28)
[2023-04-08] MEDS: MELATONIN 5 MG TABLETS PO SCH (22:33)
[2023-04-08] MEDS: THIAMINE HCL 100 MG TABLET (FP) PO SCH (22:34)
[2023-04-09 06:15] VITALS: TEMP 97.7
[2023-04-09 09:45] VITALS: BP 104/48; PULSE 76; RESP 18
[2023-04-09] MEDS: PRENATAL VITAMINS W/ FOLIC ACID TABLET (FP) PO SCH (10:33)
[2023-04-09] MEDS: methaDONE HCL 10 MG TABLET (FOR DETOX USE ONLY) PO ONE (10:33)
[2023-04-09 10:51] LABS: HEMATOCRIT 39.2 % (32.4-45.2); HEMOGLOBIN 13.1 GM/dL (10.7-15.3); MCH 31.8 pg (25.7-33.7); MCHC 33.5 g/dl (32.0-36.0); MEAN CELL VOLUME 94.8 fl (80-96); MEAN PLT VOLUME 8.2 fl (7.5-11.1); PLATELET COUNT 267 10^3/uL (134-434); RBC 4.13 M/mm3 (3.60-5.2); RDW 14.6 % (11.6-15.6); WHITE BLOOD COUNT 7.1 K/mm3 (4.0-10.0)
[2023-04-09 11:17] LABS: CHLORIDE 106 mmol/L (98-107); POTASSIUM 5.3 mmol/L (3.5-5.1); SODIUM 141 mmol/L (136-145)
[2023-04-09 11:22] LABS: CALCIUM 8.8 mg/dL (8.5-10.1)
[2023-04-09 11:23] LABS: ANION GAP 2 mmol/L (4-13); BLOOD UREA NITROGEN 14.2 mg/dL (7-18); CO2 32 mmol/L (21-32); GLUCOSE,RANDOM 108 mg/dL (74-106)
[2023-04-09 11:26] LABS: SGPT/ALT 17 U/L (13-61)
[2023-04-09 11:27] LABS: CREATININE 0.7 mg/dL (0.55-1.3); SGOT/AST 16 U/L (15-37)
[2023-04-09 11:28] LABS: TOT PROT 6.7 g/dl (6.4-8.2)
[2023-04-09 11:29] LABS: ALK PHOS 70 U/L (45-117); BILIRUBIN,TOTAL 0.2 mg/dL (0.2-1)
[2023-04-11] MEDS ORDERED: methaDONE HCL 10 MG TABLET (FOR DETOX USE ONLY) PO ONE (10:00)
[2023-04-13] MEDS ORDERED: methaDONE HCL 10 MG TABLET (FOR DETOX USE ONLY) PO ONE (10:00)
== END 2023-04-09 09:37 | disposition left against medical advice (07) | DRG 894 ==
LOC: YASAS 14:21 → Y6N 17:18
PROVIDERS: ADMIT Allergy & Immunology; ATTEND Allergy & Immunology
PROC: HZ2ZZZZ Detoxification Services for Substance Abuse Treatment (ICD-10-PCS; principal; 2023-04-08)
DX: F11.23 Opioid dependence with withdrawal (principal); F14.20 Cocaine dependence, uncomplicated; F15.20 Other stimulant dependence, uncomplicated; F17.210 Nicotine dependence, cigarettes, uncomplicated; Z88.1 Allergy status to other antibiotic agents
CPT/HCPCS: 36415; 80053; 80307; 81025; 85027; 86780; 87635

== ENCOUNTER 2023-10-07 09:27 | Inpatient (IN) | payer OTHER ==
[2023-10-07] MEDS ORDERED: P-EPHED 60MG/TRIPROLIDI 2.5MG TABLET PO PRN (09:43)
[2023-10-07] MEDS ORDERED: NALOXONE HCL 0.4 MG/ML VIAL IM PRN (09:43)
[2023-10-07] MEDS ORDERED: BISMUTH SUBSALICYLATE 524 MG/30 ML PO PRN (09:43)
[2023-10-07] MEDS ORDERED: NALOXONE (NARCAN) HCL 4 MG/0.1 ML SPRAY NS PRN (09:43)
[2023-10-07] MEDS ORDERED: ACETAMINOPHEN 325 MG TABLET (FP) PO PRN (09:43)
[2023-10-07] MEDS ORDERED: LOPERAMIDE HCL 2 MG CAPSULE PO PRN (09:43)
[2023-10-07] MEDS ORDERED: MAGNESIUM HYDROX 2400MG/30ML ORAL SUSPENSION 30 ML CUP PO PRN (09:43)
[2023-10-07] MEDS ORDERED: guaiFENesin 600 MG TABLET.ER (FP) PO PRN (09:43)
[2023-10-07] MEDS ORDERED: MAG HYDROX/AL HYDROX/SIMETH 30 ML UNIT-DOSE CUP PO PRN (09:43)
[2023-10-07] MEDS ORDERED: ONDANSETRON *ODT* 4 MG TABLET SL PRN (09:43)
[2023-10-07] MEDS ORDERED: DICYCLOMINE HCL 10 MG CAPSULE PO PRN (09:43)
[2023-10-07] MEDS ORDERED: hydrOXYzine PAMOATE 25 MG CAPSULE (FP) PO PRN (09:43)
[2023-10-07] MEDS ORDERED: BENZOCAINE/MENTHOL (CHLORASEPTIC ) LOZENGE MM PRN (09:43)
[2023-10-07] MEDS ORDERED: IBUPROFEN 400 MG TABLET (FP) PO PRN (09:43)
[2023-10-07] MEDS ORDERED: IBUPROFEN 600 MG TABLET (FP) PO PRN (09:43)
[2023-10-07] MEDS ORDERED: POLYETHYLENE GLYCOL (HEALTHYLAX) 3350 17 GM PACKET PO PRN (09:43)
[2023-10-07] MEDS ORDERED: BENZONATATE 200 MG CAPSULE PO PRN (09:43)
[2023-10-07] MEDS ORDERED: methaDONE HCL 10 MG TABLET (FOR DETOX USE ONLY) ONE (09:58)
[2023-10-07] MEDS ORDERED: PRENATAL VITAMINS W/ FOLIC ACID TABLET (FP) PO ONE (09:59)
[2023-10-07] MEDS: methaDONE HCL 10 MG TABLET (FOR DETOX USE ONLY) PO ONE (10:05)
[2023-10-07] MEDS: PRENATAL VITAMINS W/ FOLIC ACID TABLET (FP) PO SCH (10:43)
[2023-10-07] MEDS: MELATONIN 5 MG TABLETS PO SCH (22:04)
[2023-10-07] MEDS: THIAMINE 100 MG TABLET PO SCH (22:04)
[2023-10-07] MEDS: cloNIDine HCL 0.1 MG TABLET PO PRN (23:05)
[2023-10-07] MEDS: METHOCARBAMOL 500 MG TABLET PO PRN (23:05)
[2023-10-08 09:18] VITALS: PULSE 62; RESP 16; TEMP 98.6
[2023-10-08 11:53] LABS: HEMATOCRIT 37.9 % (32.4-45.2); HEMOGLOBIN 12.5 GM/dL (10.7-15.3); MCH 31.2 pg (25.7-33.7); MEAN CELL VOLUME 94.4 fl (80-96); PLATELET COUNT 236 10^3/uL (134-434); RBC 4.02 M/mm3 (3.60-5.2); RDW 13.9 % (11.6-15.6); WHITE BLOOD COUNT 9.6 K/mm3 (4.0-10.0)
[2023-10-08 12:06] LABS: POTASSIUM 4.7 mmol/L (3.5-5.1)
[2023-10-08 12:09] LABS: ALBUMIN 3.2 g/dl (3.4-5.0); BLOOD UREA NITROGEN 15.1 mg/dL (7-18); CALCIUM 8.9 mg/dL (8.5-10.1)
[2023-10-08 12:12] LABS: CREATININE 0.7 mg/dL (0.55-1.3)
[2023-10-08 12:14] LABS: BILIRUBIN,TOTAL 0.3 mg/dL (0.2-1); TOT PROT 6.6 g/dl (6.4-8.2)
[2023-10-08 12:50] VITALS: BP 144/87
[2023-10-08 13:05] LABS: HIV INTERPRETATION NEGATIVE (NEGATIVE)
[2023-10-08] MEDS ORDERED: diazePAM 5 MG TABLET PO PRN (15:30)
[2023-10-08] MEDS ORDERED: NICOTINE 21 MG/24 HOURS TOPICAL PATCH TD PRN (15:44)
[2023-10-08] MEDS ORDERED: cloNIDine HCL 0.1 MG TABLET PO SCH (18:00)
[2023-10-09] MEDS ORDERED: methaDONE 40 MG, methaDONE 10 MG PO ONE (10:00)
[2023-10-09] MEDS ORDERED: methaDONE HCL 10 MG TABLET (FOR DETOX USE ONLY) PO ONE (10:00)
[2023-10-10] MEDS ORDERED: cloNIDine HCL 0.1 MG TABLET PO PRN
[2023-10-10] MEDS ORDERED: methaDONE 40 MG, methaDONE 20 MG PO ONE (10:00)
[2023-10-11] MEDS ORDERED: methaDONE HCL 10 MG TABLET (FOR DETOX USE ONLY) PO ONE (10:00)
[2023-10-11] MEDS ORDERED: methaDONE 40 MG, methaDONE 30 MG PO ONE (10:00)
[2023-10-12] MEDS ORDERED: methaDONE HCL 40 MG DISPERSABLE TABLET PO ONE (10:00)
[2023-10-13] MEDS ORDERED: methaDONE 80 MG, methaDONE 10 MG PO ONE (10:00)
== END 2023-10-08 04:45 | disposition left against medical advice (07) | DRG 894 ==
LOC: YASAS 09:27 → Y6N 10:10
PROVIDERS: ADMIT Allergy & Immunology; ATTEND Surgery
PROC: HZ2ZZZZ Detoxification Services for Substance Abuse Treatment (ICD-10-PCS; principal; 2023-10-07)
DX: F11.23 Opioid dependence with withdrawal (principal); F14.20 Cocaine dependence, uncomplicated; R73.09 Other abnormal glucose
CPT/HCPCS: 36415; 80053; 80305; 80307; 81025; 85027; 86780; 87389; 93005; 93010

== ENCOUNTER 2024-05-09 08:22 | Inpatient (IN) | payer OTHER ==
[2024-05-09 08:45] VITALS: BMI 20.7
[2024-05-09] MEDS ORDERED: ACETAMINOPHEN INJECTION 100 ML ONE (09:22)
[2024-05-09] MEDS ORDERED: diphenhydrAMINE HCL 25 MG CAPSULE (FP) PO ONE (09:22)
[2024-05-09] MEDS: SODIUM CHLORIDE 0.9% 500 ML INFUS.BAG IV ONE (09:35)
[2024-05-09] MEDS: diphenhydrAMINE HCL 25 MG CAPSULE (FP) PO ONE (09:40)
[2024-05-09] MEDS: ACETAMINOPHEN 1000 MG/100 ML BAG IVPB ONE (09:40)
[2024-05-09 10:39] LABS: BASO % 0.4 % (0-2.0); EOS % 1.8 % (0-4.5); HEMOGLOBIN 11.6 GM/dL (10.7-15.3); MCH 31.7 pg (25.7-33.7); MCHC 34.3 g/dl (32.0-36.0); MEAN CELL VOLUME 92.4 fl (80-96); MEAN PLT VOLUME 7.8 fl (7.5-11.1); MONO % 8.1 % (3.8-10.2); NEUT % 63.7 % (42.8-82.8); PLATELET COUNT 248 10^3/uL (134-434); RBC 3.68 M/mm3 (3.60-5.2); RDW 14.5 % (11.6-15.6)
[2024-05-09 10:43] LABS: EPI CELLS >36 /uL (0-25.1); HYALINE CASTS 10 /uL (0-3.1); URINE APPEARANCE CLOUDY; URINE BACTERIA 68 /uL (0-1359); URINE BILIRUBIN NEGATIVE (NEGATIVE); URINE COLOR DK YELLOW; URINE GLUCOSE (UA) NEGATIVE (NEGATIVE); URINE KETONE NEGATIVE (NEGATIVE); URINE LEUK ESTERASE 1+ (NEGATIVE); URINE NITRITE NEGATIVE (NEGATIVE); URINE PROTEIN 1+ (NEGATIVE); URINE RBC 31 /uL (0-23.9); URINE WBC 225 /uL (0-25.8)
[2024-05-09 10:46] LABS: INR 1.17 (0.83-1.09); PROTHROMBIN TIME (PATIENT) 12.8 SEC (9.7-13.0)
[2024-05-09 10:48] LABS: ACTIVATED PTT 24.6 SECONDS (25.2-36.5)
[2024-05-09 10:58] LABS: POTASSIUM 3.7 mmol/L (3.5-5.1)
[2024-05-09 11:00] LABS: BLOOD UREA NITROGEN 13.1 mg/dL (7-18); CALCIUM 8.3 mg/dL (8.5-10.1)
[2024-05-09 11:03] LABS: PHOSPHOROUS 3.6 mg/dL (2.5-4.9)
[2024-05-09 11:04] LABS: CREATININE 0.9 mg/dL (0.55-1.3)
[2024-05-09 11:05] LABS: BILIRUBIN,TOTAL 0.2 mg/dL (0.2-1); TOT PROT 6.8 g/dl (6.4-8.2)
[2024-05-09 11:10] LABS: URINE CRYSTALS PRESENT /hpf
[2024-05-09 11:23] LABS: ERYTHROCYTE SEDIMENTATION RATE 40 mm/hr (0-20)
[2024-05-09] MEDS ORDERED: CLINDAMYCIN 600MG PREMIX IVPB 600 MG/50 ML BAG IVPB ONE ×2 (12:47→18:15)
[2024-05-09] MEDS ORDERED: CEFEPIME HCL/D5W 2 GM/50 ML BAG IVPB ONE (12:47)
[2024-05-09] MEDS: CLINDAMYCIN 600MG PREMIX IVPB 600 MG/50 ML BAG IVPB ONE (12:52)
[2024-05-09] MEDS: CEFEPIME HCL 2 GM VIAL (RESTRICTED TO ID) IVPB ONE (13:01)
[2024-05-09] MEDS: WATER IVPB SCH (14:17)
[2024-05-09] MEDS: DEXTROSE 5% IVPB SCH (14:17)
[2024-05-09] MEDS: GENTAMICIN IVPB SCH (14:17)
[2024-05-09] MEDS: CEFEPIME HCL/D5W 2 GM/50 ML BAG IVPB SCH (14:25)
[2024-05-09 15:08] LABS: HIV INTERPRETATION NEGATIVE (NEGATIVE)
[2024-05-09] MEDS: CLINDAMYCIN 600MG PREMIX IVPB 600 MG/50 ML BAG IVPB SCH (18:13)
[2024-05-09] MEDS ORDERED: CEFEPIME HCL 2 GM VIAL (RESTRICTED TO ID) IVPB SCH (22:00)
[2024-05-09] MEDS ORDERED: CEFEPIME HCL/D5W 2 GM/50 ML BAG IVPB SCH (22:00)
[2024-05-10] MEDS ORDERED: CLINDAMYCIN 600MG PREMIX IVPB 600 MG/50 ML BAG IVPB ONE ×3 (00:43→17:29)
[2024-05-10] MEDS ORDERED: CEFTRIAXONE 2 GM-D5W BAG 2 GM/50 ML BAG IVPB ONE (09:53)
[2024-05-10] MEDS ORDERED: ENOXAPARIN NA (PORCINE) 40 MG/0.4 ML DISP.SYRIN SQ ONE (09:53)
[2024-05-10] MEDS: ENOXAPARIN NA (PORCINE) 40 MG/0.4 ML DISP.SYRIN SQ SCH (10:00)
[2024-05-10] MEDS ORDERED: methaDONE HCL 40 MG DISPERSABLE TABLET ONE (10:15)
[2024-05-10] MEDS: methaDONE HCL 40 MG DISPERSABLE TABLET PO SCH (10:18)
[2024-05-10] MEDS: CEFTRIAXONE 2 GM/100 ML BAG IVPB SCH (10:39)
[2024-05-10 11:46] LABS: BASO % 0.6 % (0-2.0); EOS % 2.1 % (0-4.5); HEMATOCRIT 33.6 % (32.4-45.2); HEMOGLOBIN 11.2 GM/dL (10.7-15.3); LYMPH % 25.3 % (8-40); MCH 31.3 pg (25.7-33.7); MCHC 33.2 g/dl (32.0-36.0); MEAN CELL VOLUME 94.3 fl (80-96); MEAN PLT VOLUME 7.9 fl (7.5-11.1); MONO % 8.1 % (3.8-10.2); NEUT % 63.9 % (42.8-82.8); PLATELET COUNT 229 10^3/uL (134-434); RBC 3.56 M/mm3 (3.60-5.2); WHITE BLOOD COUNT 6.3 K/mm3 (4.0-10.0)
[2024-05-10 12:17] LABS: BLOOD UREA NITROGEN 11.2 mg/dL (7-18)
[2024-05-10 12:18] LABS: CO2 22 mmol/L (21-32)
[2024-05-10 12:19] LABS: MAGNESIUM 1.6 mg/dL (1.8-2.4)
[2024-05-10 12:22] LABS: CREATININE 0.7 mg/dL (0.55-1.3)
[2024-05-10 12:23] LABS: BILIRUBIN,TOTAL 0.2 mg/dL (0.2-1)
[2024-05-10 12:24] LABS: ALK PHOS 54 U/L (45-117)
[2024-05-10 12:44] LABS: ALBUMIN 1.5 g/dl (3.4-5.0); CALCIUM 6.5 mg/dL (8.5-10.1); SGOT/AST 16 U/L (15-37); SGPT/ALT 11 U/L (13-61); TOT PROT 10.6 g/dl (6.4-8.2)
[2024-05-10 12:59] LABS: ANION GAP 30 mmol/L (4-13); CHLORIDE 82 mmol/L (98-107); POTASSIUM 3.4 mmol/L (3.5-5.1); SODIUM 134 mmol/L (136-145)
[2024-05-10 13:16] LABS: GLUCOSE,RANDOM 520 mg/dL (74-106)
[2024-05-10] MEDS ORDERED: MAGNESIUM 1GM/D5W - 1 GM/100 ML IVPB IVPB ONE (14:27)
[2024-05-10] MEDS ORDERED: POTASSIUM CHLORIDE TABS 20 MEQ TABLET.ER (FP) PO ONE (14:27)
[2024-05-10] MEDS: POTASSIUM CHLORIDE TABS 20 MEQ TABLET.ER (FP) PO SCH (14:30)
[2024-05-10] MEDS: MAGNESIUM 1GM/D5W - 1 GM/100 ML IVPB IVPB ONE (14:30)
[2024-05-10] MEDS: INSULIN ASPART SLIDING SCALE (NOVOLOG) 1 VIAL SQ SCH (16:32)
[2024-05-10 16:59] LABS: POTASSIUM 4.2 mmol/L (3.5-5.1)
[2024-05-10 17:01] LABS: BLOOD UREA NITROGEN 14.7 mg/dL (7-18)
[2024-05-10 17:04] LABS: CREATININE 0.7 mg/dL (0.55-1.3)
[2024-05-10] MEDS ORDERED: diphenhydrAMINE HCL 25 MG CAPSULE (FP) PO ONE (17:29)
[2024-05-10] MEDS: diphenhydrAMINE HCL 25 MG CAPSULE (FP) PO PRN (17:35)
[2024-05-10] MEDS: CALCIUM CARBONATE 650 MG TABLET PO SCH (17:35)
[2024-05-11] MEDS ORDERED: CLINDAMYCIN 600MG PREMIX IVPB 600 MG/50 ML BAG IVPB ONE ×2 (00:46→09:52)
[2024-05-11] MEDS ORDERED: methaDONE HCL 40 MG DISPERSABLE TABLET ONE (06:32)
[2024-05-11 07:44] LABS: BASO % 0.4 % (0-2.0); EOS % 2.3 % (0-4.5); HEMATOCRIT 38.2 % (32.4-45.2); HEMOGLOBIN 12.4 GM/dL (10.7-15.3); LYMPH % 35.5 % (8-40); MCH 30.9 pg (25.7-33.7); MCHC 32.5 g/dl (32.0-36.0); MEAN CELL VOLUME 95.2 fl (80-96); MEAN PLT VOLUME 8.3 fl (7.5-11.1); MONO % 9.3 % (3.8-10.2); NEUT % 52.5 % (42.8-82.8); PLATELET COUNT 256 10^3/uL (134-434); RBC 4.01 M/mm3 (3.60-5.2); RDW 15.2 % (11.6-15.6); WHITE BLOOD COUNT 6.6 K/mm3 (4.0-10.0)
[2024-05-11 08:05] LABS: POTASSIUM 4.7 mmol/L (3.5-5.1)
[2024-05-11 08:10] LABS: CREATININE 0.8 mg/dL (0.55-1.3)
[2024-05-11 08:12] LABS: BILIRUBIN,TOTAL 0.3 mg/dL (0.2-1); BLOOD UREA NITROGEN 15.2 mg/dL (7-18); PHOSPHOROUS 3.3 mg/dL (2.5-4.9)
[2024-05-11 08:13] LABS: CALCIUM 8.4 mg/dL (8.5-10.1); MAGNESIUM 2.1 mg/dL (1.8-2.4)
[2024-05-11 08:47] LABS: ALBUMIN 2.8 g/dl (3.4-5.0); TOT PROT 6.4 g/dl (6.4-8.2)
[2024-05-11 09:27] VITALS: RESP 17
[2024-05-11] MEDS ORDERED: CEFTRIAXONE 1 G/50 ML PREMIX 50 ML IVPB ONE (09:52)
[2024-05-11] MEDS: CEFTRIAXONE 1 G/50 ML PREMIX 50 ML IVPB SCH (10:05)
[2024-05-11] MEDS: FLUCONAZOLE 150 MG TABLET PO ONE (10:05)
[2024-05-11 11:42] VITALS: BP 106/58; PULSE 50; TEMP 98.2
== END 2024-05-11 12:30 | disposition left against medical advice (07) | DRG 607 ==
LOC: JER 08:22 → JERBED 13:10 → J7W 05-11 11:53
PROVIDERS: ATTEND Student in an Organized Health Care Education/Training Program
DX: L98.9 Disorder of the skin and subcutaneous tissue, unspecified (principal); R78.81 Bacteremia; L03.211 Cellulitis of face; F31.9 Bipolar disorder, unspecified; F20.9 Schizophrenia, unspecified; F19.10 Other psychoactive substance abuse, uncomplicated; E87.6 Hypokalemia; E83.42 Hypomagnesemia; L29.2 Pruritus vulvae; J45.909 Unspecified asthma, uncomplicated
CPT/HCPCS: 0241U-QW; 36415; 71045-TC-FY; 80048; 80053; 81003; 82330; 82962; 83036; 83735; 84100; 84484; 84703; 85025; 85610; 85651; 85730; 86803; 86850; 86900; 86901; 87040; 87081; 87086; 87389; 87522; 93005; 93010; 93306-TC; 99285-25; J0131

== ENCOUNTER 2024-05-11 16:11 | Emergency (ER) | payer OTHER ==
[2024-05-11 16:20] VITALS: BP 115/63; PULSE 65; RESP 18; TEMP 98.4; BMI 20.9
[2024-05-11] MEDS ORDERED: SULFAMETHOXAZOLE/TRIMETHOPRIM 800MG/160MG D.S. TABLET ONE (19:12)
[2024-05-11] MEDS ORDERED: diphenhydrAMINE HCL 25 MG CAPSULE (FP) PO ONE (19:12)
[2024-05-11] MEDS: SULFAMETHOXAZOLE/TRIMETHOPRIM 800MG/160MG D.S. TABLET PO ONE (19:13)
[2024-05-11] MEDS: diphenhydrAMINE HCL 25 MG CAPSULE (FP) PO ONE (19:13)
== END 2024-05-11 19:15 | disposition home or self-care (01) ==
LOC: JERFT 16:11
DX: R21 Rash and other nonspecific skin eruption (principal); Z22.322 Carrier or suspected carrier of Methicillin resistant Staphylococcus aureus
CPT/HCPCS: 99283-25

== ENCOUNTER 2024-12-09 19:09 | Emergency (ER) | payer OTHER ==
[2024-12-09 19:24] VITALS: BP 126/72; PULSE 98; RESP 18; TEMP 98.6
== END 2024-12-09 20:57 | disposition home or self-care (01) ==
LOC: JERFT 19:09
DX: B86 Scabies (principal)
CPT/HCPCS: 99283-25